=== PATIENT | female | born 1965 | race Caucasian/White ===

== ENCOUNTER 2019-04-26 01:02 | Inpatient (IN) ==
[2019-04-26] MEDS ORDERED: 0.9 % Sodium Chloride 1,000 ML IVC ONE ×2 (02:27→04:59)
--- NOTE | 2019-04-26 02:58 | Emergency Department Note ---
Disposition Clinical Impression: Fever Qualifiers: Fever type: unspecified Qualified Code(s): R50.9 - Fever, unspecified Neutropenia Qualifiers: Neutropenia type: secondary to cancer chemotherapy Qualified Code(s): D70.1 - Agranulocytosis secondary to cancer chemotherapy Disposition: Admitted As Inpatient Condition: Fair Referrals: Shelia Reilly LOG LOADER [Primary Care Provider] - Forms: ED Satisfaction Letter, Work/School Release Time of Disposition: 06:30 General Adult HPI - General Chief complaint: ED General Medical Stated complaint: DACOSTA, Fever, cancer pt. Time Seen by Provider: 04/26/19 02:24 Source: patient Limitations: no limitations Nursing Notes Reviewed: Yes Vital Signs Reviewed: Yes - History of Present Illness HPI Narrative: 53 year old female presents to the emergency department with concern for nausea, generalized myalgias, not feeling too well over the last few days. Patient reports that she has been coughing, feeling nauseated, has had some intermittent diarrhea as well. She reports that she has had some lower abdominal pain. Patient states she has a history of pancreatitis. Patient states her last chemotherapy was on Monday. Pain Scale: 8 - Related Data Home Medications Medication Instructions Recorded Confirmed Lansoprazole [Prevacid] 30 mg PO BID 02/07/17 04/26/19 Levothyroxine [Synthroid] [place] [address]/07/17 04/26/19 Metoprolol [Lopressor] 100 mg PO BID 02/07/17 04/26/19 Montelukast [Singulair] 10 mg PO DAILY 02/07/17 04/26/19 Diclofenac Sodium [Voltaren] 75 mg PO HS 07/13/18 04/26/19 Gabapentin [Neurontin] 100 mg PO HS 07/13/18 04/26/19 Tizanidine HCl 4 mg PO BID PRN 08/16/18 04/26/19 Dicyclomine Hcl [Bentyl] 20 mg PO QID PRN 03/04/19 04/26/19 Famotidine [Pepcid] 40 mg PO HS 03/04/19 04/26/19 Ubidecarenone [Coq10] 100 mg PO DAILY 03/04/19 04/26/19 Allergies Allergy/AdvReac Type Severity Reaction Status Date / Time aspirin [ASA] AdvReac Gastrointestinal Verified 04/26/19 06:07 Upset clopidogrel [From Plavix] AdvReac EXCESSIVE Verified 04/26/19 06:07 BRUISING Erythromycin Base AdvReac N/V Verified 04/26/19 06:07 [From E-Mycin] pravastatin AdvReac Muscle Pain Verified 04/26/19 06:07 simvastatin [From Zocor] AdvReac Muscle Pain Verified 04/26/19 06:07 All systems ED: reviewed and negative except as stated. Review of Systems: As Per HPI Constitutional: Reports: fever Cardiovascular: Denies: chest pain Gastrointestinal: Reports: abdominal pain, nausea, diarrhea Genitourinary: Denies: urgency, dysuria, frequency Integumentary: Denies: rash Neurological: Reports: headache Past Medical History - Past Medical History Attestation: Yes The following information was validated with the patient. Medical history: Reports: asthma, cancer, GERD, hyperlipidemia, hypertension, migraine, thyroid disease, syncope, TIA Surgical history: Reports: , hysterectomy Psychiatric history: Reports: anxiety, bipolar, depression, panic disorder, other - Social History Smoking Status: Never smoker Smokeless Tobacco Status: No Alcohol use: Reports: none Drug use: Reports: none Physical Exam - General Limitations: no limitations General appearance: alert - Head Head exam: normocephalic - Eye Eye exam: Present: EOMI - ENT ENT exam: mucous membranes moist - Neck Neck exam: Present: trachea midline - Chest Chest inspection: Present: symmetric chest wall rise - Respiratory Respiratory exam: Present: normal lung sounds bilaterally. Absent: respiratory distress, accessory muscle use - Cardiovascular Cardiovascular exam: Present: normal rhythm, tachycardia, normal heart sounds - Abdominal Exam Abdominal exam: Present: soft, tenderness. Absent: distention, guarding, r ebound, rigidity - Extremities Exam Extremities exam: Present: normal capillary refill - Back Exam Back exam: Present: full ROM - Neurological Exam Neurological exam: Present: alert, oriented X3 - Psychiatric Psychiatric exam: Present: normal affect, normal mood - Skin Skin exam: Present: warm, dry, intact, normal color. Absent: rash Course Vital Signs Temperature 100.2 F H 04/26/19 01:06 Pulse Rate 101 04/26/19 01:06 Respiratory Rate 20 04/26/19 01:06 Blood Pressure 166/86 04/26/19 01:06 O2 Sat by Pulse Oximetry 99 04/26/19 01:06 Temperature 98.7 F 04/26/19 06:35 Pulse Rate 87 04/26/19 06:35 Respiratory Rate 11 04/26/19 06:35 Blood Pressure 141/85 04/26/19 06:35 O2 Sat by Pulse Oximetry 94 04/26/19 06:35 Oxygen Delivery Oxygen Delivery Room Air Medical Decision Making - MDM Narrative Medical decision making narrative: 53-year-old female presents to the emergency department with concern for fever. She also started chemotherapy. Patient is neutropenic here in the emergency department for the first time. This is concerning. We have obtained blood cultures as well as a culture from her port. We are administering Zosyn preemptively. Patient is given 2 liter of fluids here in the emergency department. Patient appeared to be feeling better after 2 L of fluid administration. Tachycardia did resolve. Flu and strep swab were negative. CT scans did not reveal any evidence of acute abnormality. Incidental findings as well as regression of nodes were discussed with patient at bedside. Due to concern that patient is newly neutropenic, we will admit her for further management. Dr. Menjivar accepted patient for admission. Dr. Dawkins is patient's Oncologist. Patient does not know what chemotherapy drugs she is on. Abdomen/Pelvis CT 04/26/19 03:33 IMPRESSION: No evidence of pancreatitis or other acute process within the abdomen or pelvis. Few incidental/chronic findings as detailed above. No significant interval change. D/ / Perez Man MD / Perez Man MD Interpreting Provider: Perez Man MD Chest CT 04/26/19 03:33 IMPRESSION: No evidence of acute process within the chest. Interval decreased adenopathy as described. D/ / Perez Man MD / Perez Man MD Interpreting Provider: Perez Man MD Thoracic Spine CT 04/26/19 03:55 IMPRESSION: No acute abnormality of the thoracic spine. D/ / Perez Man MD / Perez Man MD Interpreting Provider: Perez Man MD - Lab Data Result diagrams: 04/26/19 03:11 04/26/19 03:11 Lab Results 04/26/19 04/26/19 04/26/19 Range/Units 03:01 03:11 03:11 WBC 0.9 L* D (4.3-11.1) K/mcL RBC 3.37 L (3.82-4.97) M/mcL Hgb 10.0 L D (11.5-15.4) g/dL Hct 30.0 L (35.3-44.9) % MCV 89.0 (83.0-100.0) fL MCH 29.7 (28.0-33.3) pg MCHC 33.3 (31.6-35.5) g/dL RDW 12.7 (11.5-14.5) % Plt Count 64 L (140-400) K/mcL MPV 11.1 (9.4-12.4) fL Immature Gran % 1.2 (0-4) % Seg Neutrophils % 11.6 % Lymphocytes % 70.9 % Monocytes % 11.6 % Eosinophils % 3.5 % Basophils % 1.2 % Neutrophils # 0.1 L (1.6-8.9) K/mcL Lymphocytes # 0.6 (0.6-4.6) K/mcL Monocytes # 0.1 (0.0-1.3) K/mcL Eosinophils # 0.0 (0.0-0.6) K/mcL Basophils # 0.0 (0.0-0.2) K/mcL Platelet Estimate Decreased L (Normal) PT (9.4-12.1) Seconds INR APTT (26.0-36.0) Seconds Sodium (136-145) mEq/L Potassium (3.5-5.1) mEq/L Chloride (98-107) mEq/L Carbon Dioxide (23-29) mEq/L BUN (6-20) mg/dL Creatinine (0.60-1.20) mg/dL Est GFR ( Amer) (> 60) Est GFR (Non-Af Amer) (> 60) BUN/Creatinine Ratio (6-26) Glucose (70-105) mg/dL Calculated Osmolality (280-300) Lactic Acid 1.4 (0.5-2.2) mmol/L Calcium (8.6-10.3) mg/dL Phosphorus (2.7-4.5) mg/dL Magnesium (1.6-2.6) mg/dL Total Bilirubin (0.3-1.0) mg/dL Direct Bilirubin (0.0-0.2) mg/dL Indirect Bilirubin (0.0-1.2) mg/dL AST (13-39) Units/L ALT (7-52) Units/L Alkaline Phosphatase (34-104) Units/L Troponin I (< 0.04) ng/mL Serum Total Protein (6.4-8.9) g/dL Albumin (3.5-5.7) g/dL Globulin (2.4-3.5) g/dL Albumin/Globulin Ratio (1.1-2.2) Lipase (11-82) Units/L Urine Color Yellow (Yellow) Urine Clarity Clear (Clear) Urine pH 7.5 (5.0-8.0) pH Units Ur Specific [place] < 1.005 L (1.010-1.025) Urine Protein Negative (Neg-Trace) mg/dL Urine Glucose (UA) Normal (Normal) mg/dL Urine Ketones Negative (Negative) mg/dL Urine Blood Negative (Negative) Urine Nitrite Negative (Negative) Urine Bilirubin Negative (Negative) Urine Urobilinogen Normal (Normal) mg/dL Ur Leukocyte Esterase Negative (Negative) Ur Culture Indicated? NO (NO) 04/26/19 04/26/19 Range/Units 03:11 03:11 WBC (4.3-11.1) K/mcL RBC (3.82-4.97) M/mcL Hgb (11.5-15.4) g/dL Hct (35.3-44.9) % MCV (83.0-100.0) fL MCH (28.0-33.3) pg MCHC (31.6-35.5) g/dL RDW (11.5-14.5) % Plt Count (140-400) K/mcL MPV (9.4-12.4) fL Immature Gran % (0-4) % Seg Neutrophils % % Lymphocytes % % Monocytes % % Eosinophils % % Basophils % % Neutrophils # (1.6-8.9) K/mcL Lymphocytes # (0.6-4.6) K/mcL Monocytes # (0.0-1.3) K/mcL Eosinophils # (0.0-0.6) K/mcL Basophils # (0.0-0.2) K/mcL Platelet Estimate (Normal) PT 11.0 (9.4-12.1) Seconds INR 1.0 APTT 28.1 (26.0-36.0) Seconds Sodium 139 (136-145) mEq/L Potassium 3.9 (3.5-5.1) mEq/L Chloride 102 (98-107) mEq/L Carbon Dioxide 26 (23-29) mEq/L BUN 9 (6-20) mg/dL Creatinine 0.73 (0.60-1.20) mg/dL Est GFR ( Amer) > 60 (> 60) Est GFR (Non-Af Amer) > 60 (> 60) BUN/Creatinine Ratio 12 (6-26) Glucose 103 (70-105) mg/dL Calculated Osmolality 287 (280-300) Lactic Acid (0.5-2.2) mmol/L Calcium 9.0 (8.6-10.3) mg/dL Phosphorus 3.2 (2.7-4.5) mg/dL Magnesium 1.8 (1.6-2.6) mg/dL Total Bilirubin 0.7 (0.3-1.0) mg/dL Direct Bilirubin 0.1 (0.0-0.2) mg/dL Indirect Bilirubin 0.6 (0.0-1.2) mg/dL AST 49 H (13-39) Units/L ALT 96 H (7-52) Units/L Alkaline Phosphatase 63 (34-104) Units/L Troponin I < 0.03 (< 0.04) ng/mL Serum Total Protein 5.9 L (6.4-8.9) g/dL Albumin 3.8 (3.5-5.7) g/dL Globulin 2.1 L (2.4-3.5) g/dL Albumin/Globulin Ratio 1.8 (1.1-2.2) Lipase 19 (11-82) Units/L Urine Color (Yellow) Urine Clarity (Clear) Urine pH (5.0-8.0) pH Units Ur Specific [place] (1.010-1.025) Urine Protein (Neg-Trace) mg/dL Urine Glucose (UA) (Normal) mg/dL Urine Ketones (Negative) mg/dL Urine Blood (Negative) Urine Nitrite (Negative) Urine Bilirubin (Negative) Urine Urobilinogen (Normal) mg/dL Ur Leukocyte Esterase (Negative) Ur Culture Indicated? (NO) - EKG Data EKG #1 EKG attestation: Yes I reviewed and interpreted this EKG. EKG results narrative: 03:34 Heart rate 97 bpm, IL interval 161 ms, QRS duration 90 ms, QT 347 ms, normal axis. Sinus rhythm with no ischemic ST changes.
[2019-04-26 03:27] LABS: Bilirubin,Urine Negative (Negative); Blood,Urine Negative (Negative); Clarity,Urine Clear (Clear); Color,Urine Yellow (Yellow); Glucose,Urine (UA) Normal (Normal); Ketones,Urine Negative (Negative); Leukocyte Esterase,Urine Negative (Negative); Nitrite,Urine Negative (Negative); PH,Urine 7.5 pH Units (5.0-8.0); Protein,Urine Negative (Neg-Trace); Specific Gravity,Urine < 1.005 (1.010-1.025); Urobilinogen,Urine Normal (Normal)
[2019-04-26 03:29] LABS: Basophils % 1.2 %; Eosinophils % 3.5 %; Immature Granulocytes % 1.2 % (0-4); Lymphocytes # 0.6 K/mcL (0.6-4.6); Lymphocytes % 70.9 %; Mean Corpuscular HGB Conc 33.3 g/dL (31.6-35.5); Mean Corpuscular Hemoglobin 29.7 pg (28.0-33.3); Mean Platelet Volume 11.1 fL (9.4-12.4); Monocytes # 0.1 K/mcL (0.0-1.3); Monocytes % 11.6 %; Neutrophils # 0.1 K/mcL (1.6-8.9); Red Blood Count 3.37 M/mcL (3.82-4.97); Red Cell Distribution Width 12.7 % (11.5-14.5); Segmented Neutrophils % 11.6 %
[2019-04-26] MEDS ORDERED: Isovue-370 500 ML BOTTLE IVP ONE (03:33)
[2019-04-26 03:41] LABS: Activated Partial Thrombo Time 28.1 Seconds (26.0-36.0)
[2019-04-26 03:47] LABS: Platelet Count 64 K/mcL (140-400)
[2019-04-26 03:50] LABS: Alanine Aminotransferase 96 Units/L (7-52); Albumin 3.8 g/dL (3.5-5.7); Albumin/Globulin Ratio 1.8 (1.1-2.2); Alkaline Phosphatase 63 Units/L (34-104); Aspartate Amino Transferase 49 Units/L (13-39); BUN/Creatinine Ratio 12 (6-26); Bilirubin,Direct 0.1 mg/dL (0.0-0.2); Bilirubin,Indirect 0.6 mg/dL (0.0-1.2); Bilirubin,Total 0.7 mg/dL (0.3-1.0); Blood Urea Nitrogen 9 mg/dL (6-20); Carbon Dioxide 26 mEq/L (23-29); Chloride 102 mEq/L (98-107); Globulin 2.1 g/dL (2.4-3.5); Glucose 103 mg/dL (70-105); Magnesium 1.8 mg/dL (1.6-2.6); Osmolality,Calculated 287 (280-300); Phosphorous 3.2 mg/dL (2.7-4.5); Potassium 3.9 mEq/L (3.5-5.1); Sodium 139 mEq/L (136-145); Total Protein 5.9 g/dL (6.4-8.9); Troponin I < 0.03 ng/mL (< 0.04); eGFR For African Americans > 60 (> 60); eGFR For Non-African Americans > 60 (> 60)
[2019-04-26 04:00] LABS: White Blood Count 0.9 K/mcL (4.3-11.1)
[2019-04-26 04:03] LABS: Platelet Estimate Decreased (Normal)
[2019-04-26 04:09] LABS: Lipase 19 Units/L (11-82)
[2019-04-26] MEDS ORDERED: Piperacillin/Tazobactam 3.375 GM in Water for inj. (sterile) 20 ML IVP ONE (04:23)
--- NOTE | 2019-04-26 04:43 | Emergency Department Note ---
Disposition Clinical Impression: Fever Qualifiers: Fever type: unspecified Qualified Code(s): R50.9 - Fever, unspecified Neutropenia Qualifiers: Neutropenia type: secondary to cancer chemotherapy Qualified Code(s): D70.1 - Agranulocytosis secondary to cancer chemotherapy Disposition: Admitted As Inpatient Condition: Fair Referrals: Shelia Reilly TELEPHONER [Primary Care Provider] - Forms: ED Satisfaction Letter, Work/School Release Time of Disposition: 06:30 General Adult HPI - General Chief complaint: ED General Medical Stated complaint: DACOSTA, Fever, cancer pt. Time Seen by Provider: 04/26/19 02:24 Source: patient Limitations: no limitations Nursing Notes Reviewed: Yes Vital Signs Reviewed: Yes - History of Present Illness Pain Scale: 7 - Related Data Home Medications Medication Instructions Recorded Confirmed Lansoprazole [Prevacid] 30 mg PO BID 02/07/17 04/26/19 Levothyroxine [Synthroid] [place] [address]/07/17 04/26/19 Metoprolol [Lopressor] 100 mg PO BID 02/07/17 04/26/19 Montelukast [Singulair] 10 mg PO DAILY 02/07/17 04/26/19 Diclofenac Sodium [Voltaren] 75 mg PO HS 07/13/18 04/26/19 Gabapentin [Neurontin] 100 mg PO HS 07/13/18 04/26/19 Tizanidine HCl 4 mg PO BID PRN 08/16/18 04/26/19 Dicyclomine Hcl [Bentyl] 20 mg PO QID PRN 03/04/19 04/26/19 Famotidine [Pepcid] 40 mg PO HS 03/04/19 04/26/19 Ubidecarenone [Coq10] 100 mg PO DAILY 03/04/19 04/26/19 Allergies Allergy/AdvReac Type Severity Reaction Status Date / Time aspirin [ASA] AdvReac Gastrointestinal Verified 04/26/19 06:07 Upset clopidogrel [From Plavix] AdvReac EXCESSIVE Verified 04/26/19 06:07 BRUISING Erythromycin Base AdvReac N/V Verified 04/26/19 06:07 [From E-Mycin] pravastatin AdvReac Muscle Pain Verified 04/26/19 06:07 simvastatin [From Zocor] AdvReac Muscle Pain Verified 04/26/19 06:07 Past Medical History - Past Medical History Medical history: Reports: asthma, cancer, GERD, hyperlipidemia, hypertension, migraine, thyroid disease, syncope, TIA Surgical history: Reports: , hysterectomy Psychiatric history: Reports: anxiety, bipolar, depression, panic disorder, other - Social History Smoking Status: Never smoker Smokeless Tobacco Status: No Alcohol use: Reports: none Drug use: Reports: none Physical Exam - General Limitations: no limitations General appearance: alert Course Vital Signs Temperature 100.2 F H 04/26/19 01:06 Pulse Rate 101 04/26/19 01:06 Respiratory Rate 20 04/26/19 01:06 Blood Pressure 166/86 04/26/19 01:06 O2 Sat by Pulse Oximetry 99 04/26/19 01:06 Temperature 98.7 F 04/26/19 06:35 Pulse Rate 87 04/26/19 06:35 Respiratory Rate 11 04/26/19 06:35 Blood Pressure 141/85 04/26/19 06:35 O2 Sat by Pulse Oximetry 94 04/26/19 06:35 Oxygen Delivery Oxygen Delivery Room Air Medical Decision Making - Medical Records Medical records reviewed: Yes I reviewed the patient's medical records. - Lab Data Lab results reviewed: Yes I reviewed the patient's lab results. Result diagrams: 04/26/19 03:11 04/26/19 03:11 Lab Results 04/26/19 04/26/19 04/26/19 Range/Units 03:01 03:11 03:11 WBC 0.9 L* D (4.3-11.1) K/mcL RBC 3.37 L (3.82-4.97) M/mcL Hgb 10.0 L D (11.5-15.4) g/dL Hct 30.0 L (35.3-44.9) % MCV 89.0 (83.0-100.0) fL MCH 29.7 (28.0-33.3) pg MCHC 33.3 (31.6-35.5) g/dL RDW 12.7 (11.5-14.5) % Plt Count 64 L (140-400) K/mcL MPV 11.1 (9.4-12.4) fL Immature Gran % 1.2 (0-4) % Seg Neutrophils % 11.6 % Lymphocytes % 70.9 % Monocytes % 11.6 % Eosinophils % 3.5 % Basophils % 1.2 % Neutrophils # 0.1 L (1.6-8.9) K/mcL Lymphocytes # 0.6 (0.6-4.6) K/mcL Monocytes # 0.1 (0.0-1.3) K/mcL Eosinophils # 0.0 (0.0-0.6) K/mcL Basophils # 0.0 (0.0-0.2) K/mcL Platelet Estimate Decreased L (Normal) PT (9.4-12.1) Seconds INR APTT (26.0-36.0) Seconds Sodium (136-145) mEq/L Potassium (3.5-5.1) mEq/L Chloride (98-107) mEq/L Carbon Dioxide (23-29) mEq/L BUN (6-20) mg/dL Creatinine (0.60-1.20) mg/dL Est GFR ( Amer) (> 60) Est GFR (Non-Af Amer) (> 60) BUN/Creatinine Ratio (6-26) Glucose (70-105) mg/dL Calculated Osmolality (280-300) Lactic Acid 1.4 (0.5-2.2) mmol/L Calcium (8.6-10.3) mg/dL Phosphorus (2.7-4.5) mg/dL Magnesium (1.6-2.6) mg/dL Total Bilirubin (0.3-1.0) mg/dL Direct Bilirubin (0.0-0.2) mg/dL Indirect Bilirubin (0.0-1.2) mg/dL AST (13-39) Units/L ALT (7-52) Units/L Alkaline Phosphatase (34-104) Units/L Troponin I (< 0.04) ng/mL Serum Total Protein (6.4-8.9) g/dL Albumin (3.5-5.7) g/dL Globulin (2.4-3.5) g/dL Albumin/Globulin Ratio (1.1-2.2) Lipase (11-82) Units/L Urine Color Yellow (Yellow) Urine Clarity Clear (Clear) Urine pH 7.5 (5.0-8.0) pH Units Ur Specific [place] < 1.005 L (1.010-1.025) Urine Protein Negative (Neg-Trace) mg/dL Urine Glucose (UA) Normal (Normal) mg/dL Urine Ketones Negative (Negative) mg/dL Urine Blood Negative (Negative) Urine Nitrite Negative (Negative) Urine Bilirubin Negative (Negative) Urine Urobilinogen Normal (Normal) mg/dL Ur Leukocyte Esterase Negative (Negative) Ur Culture Indicated? NO (NO) 04/26/19 04/26/19 Range/Units 03:11 03:11 WBC (4.3-11.1) K/mcL RBC (3.82-4.97) M/mcL Hgb (11.5-15.4) g/dL Hct (35.3-44.9) % MCV (83.0-100.0) fL MCH (28.0-33.3) pg MCHC (31.6-35.5) g/dL RDW (11.5-14.5) % Plt Count (140-400) K/mcL MPV (9.4-12.4) fL Immature Gran % (0-4) % Seg Neutrophils % % Lymphocytes % % Monocytes % % Eosinophils % % Basophils % % Neutrophils # (1.6-8.9) K/mcL Lymphocytes # (0.6-4.6) K/mcL Monocytes # (0.0-1.3) K/mcL Eosinophils # (0.0-0.6) K/mcL Basophils # (0.0-0.2) K/mcL Platelet Estimate (Normal) PT 11.0 (9.4-12.1) Seconds INR 1.0 APTT 28.1 (26.0-36.0) Seconds Sodium 139 (136-145) mEq/L Potassium 3.9 (3.5-5.1) mEq/L Chloride 102 (98-107) mEq/L Carbon Dioxide 26 (23-29) mEq/L BUN 9 (6-20) mg/dL Creatinine 0.73 (0.60-1.20) mg/dL Est GFR ( Amer) > 60 (> 60) Est GFR (Non-Af Amer) > 60 (> 60) BUN/Creatinine Ratio 12 (6-26) Glucose 103 (70-105) mg/dL Calculated Osmolality 287 (280-300) Lactic Acid (0.5-2.2) mmol/L Calcium 9.0 (8.6-10.3) mg/dL Phosphorus 3.2 (2.7-4.5) mg/dL Magnesium 1.8 (1.6-2.6) mg/dL Total Bilirubin 0.7 (0.3-1.0) mg/dL Direct Bilirubin 0.1 (0.0-0.2) mg/dL Indirect Bilirubin 0.6 (0.0-1.2) mg/dL AST 49 H (13-39) Units/L ALT 96 H (7-52) Units/L Alkaline Phosphatase 63 (34-104) Units/L Troponin I < 0.03 (< 0.04) ng/mL Serum Total Protein 5.9 L (6.4-8.9) g/dL Albumin 3.8 (3.5-5.7) g/dL Globulin 2.1 L (2.4-3.5) g/dL Albumin/Globulin Ratio 1.8 (1.1-2.2) Lipase 19 (11-82) Units/L Urine Color (Yellow) Urine Clarity (Clear) Urine pH (5.0-8.0) pH Units Ur Specific [place] (1.010-1.025) Urine Protein (Neg-Trace) mg/dL Urine Glucose (UA) (Normal) mg/dL Urine Ketones (Negative) mg/dL Urine Blood (Negative) Urine Nitrite (Negative) Urine Bilirubin (Negative) Urine Urobilinogen (Normal) mg/dL Ur Leukocyte Esterase (Negative) Ur Culture Indicated? (NO) - Radiology Data Radiology results reviewed: Yes I reviewed the patient's radiology results. Abdomen/Pelvis CT 04/26/19 03:33 IMPRESSION: No evidence of pancreatitis or other acute process within the abdomen or pelvis. Few incidental/chronic findings as detailed above. No significant interval change. D/ / Perez Man MD / Perez Man MD Interpreting Provider: Perez Man MD Chest CT 04/26/19 03:33 IMPRESSION: No evidence of acute process within the chest. Interval decreased adenopathy as described. D/ / Perez Man MD / Perez Man MD Interpreting Provider: Perez Man MD Thoracic Spine CT 04/26/19 03:55 IMPRESSION: No acute abnormality of the thoracic spine. D/ / Perez Man MD / Perez Man MD Interpreting Provider: Perez Man MD - EKG Data EKG #1 EKG attestation: Yes I reviewed and interpreted this EKG. EKG results narrative: EKG shows a normal sinus rhythm with ventricular rate of 97. No significant ST segment elevation or depression. No arrhythmia or ectopy. Critical Care Time Critical Care Time: Yes Total Critical Care Time: 45 Attestation: Critical care performed: Time is exclusive of separately billable procedures. Time includes: direct patient care, patient reassessment, coordination of patient care, interpretation of data (laboratory data, radiology data, and respiratory data), review of patient's medical records, medical consultation and documentation of patient care. Procedures included in critical care time: Procedures excluded from critical care time: Attestation Statement - Attestation Attestation: ISpeedy MD, personally evaluated this patient and discussed their management with the resident physician. I reviewed the resident's note and agree with the documented findings, medical decision making, and plan of care. I reviewed the residents documentation and agree with the residents assessment and plan of care. I have personally had face to face time with the patient. I personally supervised and was present for the singh/critical portions of the following procedures completed by the resident: EKG interpretation. 53-year-old female presents to the emergency department with a complaint of sore throat, headache, generalized body aches, and fever for 1 day prior to arrival. Patient was recently diagnosed with Hodgkin's lymphoma and recently started chemotherapy. Her last chemotherapy was last week. No increased cough or shortness of breath. No chest pain. Some abdominal pain and flank pain. No GI bleed symptoms. No UTI symptoms. Some mid back pain. On examination patient is a well-developed well-nourished female in no acute distress. She is alert and oriented 3. There is no cyanosis or diaphoresis. Breath sounds are clear and equal bilaterally. Heart regular rate and rhythm. Abdomen is soft with mild to moderate mid and upper abdominal tenderness, worse in the left upper quadrant. Mild left CVA tenderness. Tenderness palpation over the midthoracic spine. No guarding or rebound tenderness. EKG shows a normal sinus rhythm with ventricular rate of 97. No significant ST segment elevation or depression. No arrhythmia or ectopy. Labs reviewed. WBC 0.9 with absolute neutrophil count 0.1. Platelets 64. No acute abnormality on CT of the chest, abdomen, and thoracic spine. Blood cultures obtained and IV antibiotics initiated. The hospitalist, Dr. Menjivar, was consulted and accepted admission of the patient.
[2019-04-26] MEDS ORDERED: Naloxone 0.4 MG/ML INJ IVP PRN (08:27)
--- NOTE | 2019-04-26 08:46 | Internal Med History&Physical ---
Date of Encounter: 04/26/19 Time of Encounter: 08:46 Internal Medicine - H&P: HPI Chief complaint: Fever Admitted From: Emergency Dept History of present illness: Milly Gonzalez is a 53 F w hx Follicular Lymphoma (dx '08, recurrence ') s/p RIJ port 04/01/2019, TIA, L carotid stenosis, PFO w R to L shunt, hypothyroidism s/p cristin's thyroiditis, asthma, migraines, who p/w fever. Patient recently started chemotherapy, first infusion on 04/18. States she had Neulasta to prevent neutropenia but thinks only the first dose was given, not the second one. Says that 2 days ago, she had crampy abd pain associated with an episode of diarrhea, and thereafter felt warm with low grade fevers which improved following a drenching sweat around when she went to bed. However, on , she again felt warm and sweaty, and checked her temp which was 101 and thus she came to ED. No further diarrhea, no N/V, no mouth sores, no cough, no rashes, no dysuria. In the ED, vitals: T 100.2, HR 101, RR 20, BP 160s/80s, satting high 90s% on RA. Labs show ANC 0.1, Hb 10, Plt 60, Cr 0.7, ALT 100. Imaging including CT chest/abd/pelvis without abnormalities, as was a CT T-spine which was obtained for back pain. Rapid strep and flu swabs negative. Blood cultures obtained from peripheral and port. Patient given NS 2L bolus and dose of Zosyn prior to admission for further workup. Past medical, surgical, social, and family histories reviewed and updated as below. Past Med Surg Social Fam HX - Past Medical History Medical history: asthma, cancer, GERD, hyperlipidemia, hypertension, migraine, thyroid disease, syncope, TIA Additional medical history: TIA x 2. stenosis of lt carotid artery. PFO with rt to lt shunt seen on echo. RLS. FAVIO Psychiatric history: anxiety, bipolar, depression, panic disorder, other - Past Surgical History Surgical History: , hysterectomy Additional surgical history: breast, cataract. ablation, lumpectomy left breast - Social History Smoking Status: Never smoker Smokeless Tobacco Status: No Alcohol use: none Drug use: none - Family History Father Living Status: Still Living Hx Family Cardiac Disorders: Yes (CHF) Mother Living Status: Hx Family Cardiac Disorders: Yes ([place]) Hx Family Neurologic Disorders: Yes (stroke) Internal Medicine - H&P: Meds Lansoprazole [Prevacid] 30 mg PO BID 02/07/17 [History] Levothyroxine [Synthroid] 112 mcg PO 0630 02/07/17 [History] Metoprolol [Lopressor] 100 mg PO BID 02/07/17 [History] Montelukast [Singulair] 10 mg PO DAILY 02/07/17 [History] Diclofenac Sodium [Voltaren] 75 mg PO HS 07/13/18 [History] Gabapentin [Neurontin] 100 mg PO HS 07/13/18 [History] Tizanidine HCl 4 mg PO BID PRN 08/16/18 [History] Dicyclomine Hcl [Bentyl] 20 mg PO QID PRN 03/04/19 [History] Famotidine [Pepcid] 40 mg PO HS 03/04/19 [History] Ubidecarenone [Coq10] 100 mg PO DAILY 03/04/19 [History] Allergy/AdvReac Type Severity Reaction Status Date / Time aspirin [ASA] AdvReac Gastrointestinal Verified 04/26/19 06:07 Upset clopidogrel [From Plavix] AdvReac EXCESSIVE Verified 04/26/19 06:07 BRUISING Erythromycin Base AdvReac N/V Verified 04/26/19 06:07 [From E-Mycin] pravastatin AdvReac Muscle Pain Verified 04/26/19 06:07 simvastatin [From Zocor] AdvReac Muscle Pain Verified 04/26/19 06:07 All Systems PM: A 10-system review of systems was performed and is negative for pertinent findings except as documented above in the HPI. - Constitutional Vitals: Temp Pulse Resp BP Pulse Ox 98.7 F 85 16 139/89 96 04/26/19 08:09 04/26/19 08:03 04/26/19 08:03 04/26/19 08:03 04/26/19 08:03 Exam: General: NAD, good eye contact, well appearing but does appear slightly older than stated age Head: Atraumatic, normocephalic. Face symmetric Eyes: EOMI, sclerae anicteric ENT: Mucous membranes moist. Normal oral mucosa and dentition, no ulcers or irritation. Trachea midline. Thoracic: No visible chest wall deformities. Normal breath sounds b/l, no wheezing or crackles Cardio: Normal S1 and S2, regular rate and rhythm Abdomen: Soft, nondistended, bowel sounds present, does have mild umbilical /epigastric tenderness Extremities: Warm, well perfused. DP pulses 2+ b/l. No clubbing, cyanosis. No edema Skin: Intact. No rashes, bruises, or ulcers Neuro: Awake, fully oriented. Good memory, concentration, attention. Speech fluent. CN II-XII grossly intact. Strength 5/5 in b/l UE and LE Internal Med - H&P Results - Labs CBC & Chem 7: 04/26/19 03:11 04/26/19 03:11 Labs: Short CBC 04/26/19 Range/Units 03:11 WBC 0.9 L* D (4.3-11.1) K/mcL Hgb 10.0 L D (11.5-15.4) g/dL Hct 30.0 L (35.3-44.9) % Plt Count 64 L (140-400) K/mcL Neutrophils # 0.1 L (1.6-8.9) K/mcL BMP 04/26/19 03:11 Sodium 139 Potassium 3.9 Chloride 102 Carbon Dioxide 26 BUN 9 Creatinine 0.73 Glucose 103 Calcium 9.0 Cardiac Enzymes 04/26/19 Range/Units 03:11 Troponin I < 0.03 (< 0.04) ng/mL Liver Function 04/26/19 Range/Units 03:11 Total Bilirubin 0.7 (0.3-1.0) mg/dL Direct Bilirubin 0.1 (0.0-0.2) mg/dL AST 49 H (13-39) Units/L ALT 96 H (7-52) Units/L Alkaline Phosphatase 63 (34-104) Units/L Albumin 3.8 (3.5-5.7) g/dL Urine 04/26/19 Range/Units 03:11 Urine Color Yellow (Yellow) Urine Clarity Clear (Clear) Urine pH 7.5 (5.0-8.0) pH Units Ur Specific Tor[place] < 1.005 L (1.010-1.025) Urine Protein Negative (Neg-Trace) mg/dL Urine Glucose (UA) Normal (Normal) mg/dL - Impressions ITS Impressions Abdomen/Pelvis CT 04/26/19 03:33 IMPRESSION: No evidence of pancreatitis or other acute process within the abdomen or pelvis. Few incidental/chronic findings as detailed above. No significant interval change. D/ / Perez Man MD / Perez Man MD Interpreting Provider: Perez Man MD Chest CT 04/26/19 03:33 IMPRESSION: No evidence of acute process within the chest. Interval decreased adenopathy as described. D/ / Perez Man MD / Perez Man MD Interpreting Provider: Perez Man MD Thoracic Spine CT 04/26/19 03:55 IMPRESSION: No acute abnormality of the thoracic spine. D/ / Perez Man MD / Perez Man MD Interpreting Provider: Perez Man MD - Summary of Assessment and Plan Summary of Assessment and Plan: Milly Gonzalez is a 53 F w hx Follicular Lymphoma (dx '08, recurrence '19) s/p RIJ port 04/01/2019, TIA, L carotid stenosis, PFO w R to L shunt, hypothyroidism s/p cristin's thyroiditis, asthma, migraines, who p/w fever, ANC 0.1, in context of recent chemo, concerning for neutropenic fever. Neutropenic fever: unclear source, no focal s/sx other than single episode diarrhea -2d, rapid flu and strep negative, CXR and UA unremarkable - BCx x2 (peripheral and port) pending - RVP - stool molecular panel if has loose stools - empiric zosyn - no mucositis, rash, or port erythema to suggest need for vanc at this point - Heme consult - neutropenic precautions Sepsis: SIRS 4/4, management as above Mild normocytic anemia: likely 2/2 lymphoma and chemo, maintain Hb >7 Thrombocytopenia: SCDs, maintain Plt >20 Follicular lymphoma: f/w anirudh Sutton in place, last chemo 04/18, Onc consulted for assistance in management HTN: home lopressor 100 bid PAD (L carotid stenosis), TIA, HLD: ASA, statin PFO w R to L shunt: noted Hypothyroidism s/p thyroiditis: home synthroid 112 Migraines: GERD: home PPI daily Home meds: seroquel 50 qhs, gabapentin 100 qhs, voltaren gel prn, tizanidine 4 prn PPx: SCDs Activity: up ad alexandra FEN: cardiac, no MIVF Lines: anirudh MCCRARY Consults: Heme Code: Full Dispo: patient requires inpatient eval and management at this time. Anticipate 3+ days. Will be homegoing.
[2019-04-26 09:10] LABS: Lactate Dehydrogenase 187 Units/L (140-271); Uric Acid 2.4 mg/dL (2.3-7.6)
[2019-04-26] MEDS: Metoprolol 100 MG TABLET PO SCH ×2 (12:02→21:15)
[2019-04-26] MEDS: Piperacillin/Tazobactam 4.5 GM in 0.9 % Sodium Chloride Mini Bag 100 ML IVPB SCH ×2 (12:03→21:18)
[2019-04-26 13:10] LABS: Adenovirus Not Detected (Not Detect); Bordetella Pertussis Not Detected (Not Detect); Chlamydophila pneumoniae Not Detected (Not Detect); Coronavirus 229E Not Detected (Not Detect); Coronavirus HKU1 Not Detected (Not Detect); Coronavirus NL63 Not Detected (Not Detect); Coronavirus OC43 Not Detected (Not Detect); Human Metapneumovirus Not Detected (Not Detect); Human Rhinovirus/Enterovirus Not Detected (Not Detect); Influenza A Subtype 2009 H1 Not Detected (Not Detect); Influenza A Untypeable Not Detected (Not Detect); Influenza B Not Detected (Not Detect); Mycoplasma pneumoniae Not Detected (Not Detect); Parainfluenza Virus 1 Not Detected (Not Detect); Parainfluenza Virus 2 Not Detected (Not Detect); Parainfluenza Virus 3 Not Detected (Not Detect); Parainfluenza Virus 4 Not Detected (Not Detect); Respiratory Syncytial Virus Not Detected (Not Detect)
--- NOTE | 2019-04-26 14:48 | Oncology Inp Consult Note ---
<Jose Basilio - Last Filed: 04/26/19 15:45> Date of Encounter: 04/26/19 - Data of Consult Requesting Physician: Shiv Menjivar MD Primary Care Provider: Shelia Reilly CNP Medications and Allergies Metoprolol [Lopressor] 100 mg PO BID 02/07/17 [History] Montelukast [Singulair] 10 mg PO DAILY 02/07/17 [History] Diclofenac Sodium [Voltaren] 75 mg PO HS 07/13/18 [History] Gabapentin [Neurontin] 100 mg PO HS 07/13/18 [History] Tizanidine HCl 4 mg PO BID PRN 08/16/18 [History] Dicyclomine Hcl [Bentyl] 20 mg PO QID PRN 03/04/19 [History] Famotidine [Pepcid] 40 mg PO HS 03/04/19 [History] Ubidecarenone [Coq10] 100 mg PO DAILY 03/04/19 [History] Levothyroxine [Synthroid] 100 mcg PO DAILY 04/26/19 [History] Omeprazole [PriLOSEC] 40 mg PO DAILY 04/26/19 [History] Quetiapine Fumarate [Seroquel] 50 mg PO HS 04/26/19 [History] Allergy/AdvReac Type Severity Reaction Status Date / Time aspirin [ASA] AdvReac Gastrointestinal Verified 04/26/19 06:07 Upset clopidogrel [From Plavix] AdvReac EXCESSIVE Verified 04/26/19 06:07 BRUISING Erythromycin Base AdvReac N/V Verified 04/26/19 06:07 [From E-Mycin] pravastatin AdvReac Muscle Pain Verified 04/26/19 06:07 simvastatin [From Zocor] AdvReac Muscle Pain Verified 04/26/19 06:07 Consult Discharge Plan - Plan Referrals: Shelia Reilly CNP [Primary Care Provider] - Inpatient Charges Provider: Dr. Yordan Basilio Consult - Inpatient: [id number] - Attending Attestation I examined this patient and my medical decision-making was reviewed with the Advanced Practice Nurse. I agree with the documented findings, disposition and treatment plan as described except to the extent set forth below. -CT scans show that she is responding to treatment -Cultures pending. -Recommend Neupogen 5 mcg/kg SQ until ANC > 1000 -Currently on Zosyn, please add Acyclovir 400 mg PO BID and Fluconazole 400 mg PO daily <Avelino Luz Jr - Last Filed: 04/26/19 18:19> Date of Encounter: 04/26/19 Time of Encounter: 14:46 Assessment and Plan (1) Neutropenia Status: Acute Assessment and plan: This is a 53 year old female patient with Hodgkin lymphoma under the care of Dr Jose Basilio at [facility]. She has neutropenia secondary to Cycle 1 of RCHOP chemotherapy on 04/18/19. Currently, she feels much better after fluids and antibiotics. No more abdominal cramping Recommendations: 1. Neupogen 5mcg/kg daily until ANC > 1000 2. Add fluconazole 400 mg PO daily, acyclovir 400mg BID while inpatient, then for 10 days after discharge. At discharge add cipro 500 BID for 10 days. 3. Follow up as scheduled with Dr Basilio at the [facility] 4. OK to discharge when medically stable Dr Basilio assessed patient with me today Qualifiers: Neutropenia type: secondary to cancer chemotherapy Qualified Code(s): D70.1 - Agranulocytosis secondary to cancer chemotherapy; T45.1X5A - Adverse effect of antineoplastic and immunosuppressive drugs, initial encounter (2) Follicular lymphoma Status: Chronic Qualifiers: Follicular lymphoma type: unspecified follicular type Lymphoma site: neck Qualified Code(s): C82.91 - Follicular lymphoma, unspecified, lymph nodes of head, face, and neck - Data of Consult Patient: known to practice within the last 3 years Consult date: 04/26/19 Requesting Physician: Shiv Menjivar MD Primary Care Provider: Shelia Reilly CNP - Consult Narrative Reason for consult: Neutropenia History of present illness: This is a 53 year old female patient of Dr Jose Basilio at [facility] Oncology History: 1. Stage IIB, Nodular Lymphocyte Predominant Hodgkin's Lymphoma. a. Transformed from Stage I, grade 1 follicular lymphoma of the left axilla, initially diagnosed in 12/2017. 2. Stenosis of the left carotid artery (60-79%) 3. PFO, with a right to left shunt seen on ECHO. 4. Left breast excisional biopsy in 2006, results being benign 5. Trev's thyroiditis 6. TIA in September 2016, TIA in July 2018 7. Hypothyroidism 8. Asthma 9. Hyperlipidemia 10. Migraines/ Headaches Cycle 1, Day 1 RCHOP chemo on 04/18/19 At time of admission, she had crampy abdominal pain associated with an episode of diarrhea, and thereafter felt warm with low grade fevers which improved following a drenching sweat around when she went to bed. She had a temp of 101 and thus she came to ED and was admitted for neutropenia from chemo. Past Med Surg Social Fam HX - Past Medical History Medical history: asthma, cancer, GERD, hyperlipidemia, hypertension, migraine, thyroid disease, syncope, TIA Additional medical history: TIA x 2. stenosis of lt carotid artery. PFO with rt to lt shunt seen on echo. RLS. FAVIO Psychiatric history: anxiety, bipolar, depression, panic disorder, other - Past Surgical History Surgical History: , hysterectomy Additional surgical history: breast, cataract. ablation, lumpectomy left breast - Social History Smoking Status: Never smoker Smokeless Tobacco Status: No Alcohol use: none Drug use: none - Family History Father Living Status: Still Living Hx Family Cardiac Disorders: Yes (CHF) Mother Living Status: Hx Family Cardiac Disorders: Yes ([place]) Hx Family Neurologic Disorders: Yes (stroke) Constitutional: Present: fatigue, malaise Oncology - Exam - Constitutional General appearance: cooperative, no acute distress - Head Head exam: Present: normal inspection, normocephalic - Eye Eye exam: Present: PERRL - ENT ENT exam: Present: mucous membranes moist - Neck Neck exam: Present: full ROM - Respiratory Respiratory exam: Present: CTAB - Cardiovascular Cardiovascular exam: Present: RRR - GI/Abdominal GI/Abdominal exam: Present: normal bowel sounds, soft - Extremities Exam Extremities exam: Present: full ROM, normal inspection - Neurological Exam Neurological exam: Present: alert, oriented X3, no focal deficits - Psychiatric Psychiatric exam: Present: normal affect, normal mood - Skin Skin exam: Present: dry, intact, warm Oncology Inpatient Results Labs: Laboratory Last Values WBC 0.9 K/mcL (4.3-11.1) L* D 04/26/19 03:11 RBC 3.37 M/mcL (3.82-4.97) L 04/26/19 03:11 Hgb 10.0 g/dL (11.5-15.4) L D 04/26/19 03:11 Hct 30.0 % (35.3-44.9) L 04/26/19 03:11 MCV 89.0 fL (83.0-100.0) 04/26/19 03:11 MCH 29.7 pg (28.0-33.3) 04/26/19 03:11 MCHC 33.3 g/dL (31.6-35.5) 04/26/19 03:11 RDW 12.7 % (11.5-14.5) 04/26/19 03:11 Plt Count 64 K/mcL (140-400) L 04/26/19 03:11 MPV 11.1 fL (9.4-12.4) 04/26/19 03:11 Immature Gran % 1.2 % (0-4) 04/26/19 03:11 Seg Neutrophils % 11.6 % 04/26/19 03:11 Lymphocytes % 70.9 % 04/26/19 03:11 Monocytes % 11.6 % 04/26/19 03:11 Eosinophils % 3.5 % 04/26/19 03:11 Basophils % 1.2 % 04/26/19 03:11 Neutrophils # 0.1 K/mcL (1.6-8.9) L 04/26/19 03:11 Lymphocytes # 0.6 K/mcL (0.6-4.6) 04/26/19 03:11 Monocytes # 0.1 K/mcL (0.0-1.3) 04/26/19 03:11 Eosinophils # 0.0 K/mcL (0.0-0.6) 04/26/19 03:11 Basophils # 0.0 K/mcL (0.0-0.2) 04/26/19 03:11 Platelet Estimate Decreased (Normal) L 04/26/19 03:11 PT 11.0 Seconds (9.4-12.1) 04/26/19 03:11 INR 1.0 04/26/19 03:11 APTT 28.1 Seconds (26.0-36.0) 04/26/19 03:11 Sodium 139 mEq/L (136-145) 04/26/19 03:11 Potassium 3.9 mEq/L (3.5-5.1) 04/26/19 03:11 Chloride 102 mEq/L (98-107) 04/26/19 03:11 Carbon Dioxide 26 mEq/L (23-29) 04/26/19 03:11 BUN 9 mg/dL (6-20) 04/26/19 03:11 Creatinine 0.73 mg/dL (0.60-1.20) 04/26/19 03:11 Est GFR ( Amer) > 60 (> 60) 04/26/19 03:11 Est GFR (Non-Af Amer) > 60 (> 60) 04/26/19 03:11 BUN/Creatinine Ratio 12 (6-26) 04/26/19 03:11 Glucose 103 mg/dL (70-105) 04/26/19 03:11 Calculated Osmolality 287 (280-300) 04/26/19 03:11 Lactic Acid 1.4 mmol/L (0.5-2.2) 04/26/19 03:01 Uric Acid 2.4 mg/dL (2.3-7.6) 04/26/19 03:11 Calcium 9.0 mg/dL (8.6-10.3) 04/26/19 03:11 Phosphorus 3.2 mg/dL (2.7-4.5) 04/26/19 03:11 Magnesium 1.8 mg/dL (1.6-2.6) 04/26/19 03:11 Total Bilirubin 0.7 mg/dL (0.3-1.0) 04/26/19 03:11 Direct Bilirubin 0.1 mg/dL (0.0-0.2) 04/26/19 03:11 Indirect Bilirubin 0.6 mg/dL (0.0-1.2) 04/26/19 03:11 AST 49 Units/L (13-39) H 04/26/19 03:11 ALT 96 Units/L (7-52) H 04/26/19 03:11 Alkaline Phosphatase 63 Units/L (34-104) 04/26/19 03:11 Lactate Dehydrogenase 187 Units/L (140-271) 04/26/19 03:11 Troponin I < 0.03 ng/mL (< 0.04) 04/26/19 03:11 Serum Total Protein 5.9 g/dL (6.4-8.9) L 04/26/19 03:11 Albumin 3.8 g/dL (3.5-5.7) 04/26/19 03:11 Globulin 2.1 g/dL (2.4-3.5) L 04/26/19 03:11 Albumin/Globulin Ratio 1.8 (1.1-2.2) 04/26/19 03:11 Lipase 19 Units/L (11-82) 04/26/19 03:11 Urine Color Yellow (Yellow) 04/26/19 03:11 Urine Clarity Clear (Clear) 04/26/19 03:11 Urine pH 7.5 pH Units (5.0-8.0) 04/26/19 03:11 Ur Specific [place] < 1.005 (1.010-1.025) L 04/26/19 03:11 Urine Protein Negative mg/dL (Neg-Trace) 04/26/19 03:11 Urine Glucose (UA) Normal mg/dL (Normal) 04/26/19 03:11 Urine Ketones Negative mg/dL (Negative) 04/26/19 03:11 Urine Blood Negative (Negative) 04/26/19 03:11 Urine Nitrite Negative (Negative) 04/26/19 03:11 Urine Bilirubin Negative (Negative) 04/26/19 03:11 Urine Urobilinogen Normal mg/dL (Normal) 04/26/19 03:11 Ur Leukocyte Esterase Negative (Negative) 04/26/19 03:11 Ur Culture Indicated? NO (NO) 04/26/19 03:11 Chlamy pneumoniae PCR Not Detected (Not Detect) 04/26/19 12:00 Adenovirus (PCR) Not Detected (Not Detect) 04/26/19 12:00 B. pertussis DNA (PCR) Not Detected (Not Detect) 04/26/19 12:00 B.parapertussis DNA PCR Not Detected (Not Detect) 04/26/19 12:00 Coronavirus OC43 (PCR) Not Detected (Not Detect) 04/26/19 12:00 Coronavirus HKU1 (PCR) Not Detected (Not Detect) 04/26/19 12:00 Coronavirus 229E (PCR) Not Detected (Not Detect) 04/26/19 12:00 Coronavirus NL63 (PCR) Not Detected (Not Detect) 04/26/19 12:00 Human Metapneumovir PCR Not Detected (Not Detect) 04/26/19 12:00 Influenza A (H1) PCR Not Detected (Not Detect) 04/26/19 12:00 Influ A (H1N1/09) PCR Not Detected (Not Detect) 04/26/19 12:00 Influenza A (H3) PCR Not Detected (Not Detect) 04/26/19 12:00 Influenza A Untype (PCR) Not Detected (Not Detect) 04/26/19 12:00 Influenza Type B (PCR) Not Detected (Not Detect) 04/26/19 12:00 M.pneumoniae DNA (PCR) Not Detected (Not Detect) 04/26/19 12:00 Parainfluenza 1 (PCR) Not Detected (Not Detect) 04/26/19 12:00 Parainfluenza 2 (PCR) Not Detected (Not Detect) 04/26/19 12:00 Parainfluenza 3 (PCR) Not Detected (Not Detect) 04/26/19 12:00 Parainfluenza 4 (PCR) Not Detected (Not Detect) 04/26/19 12:00 RSV (PCR) Not Detected (Not Detect) 04/26/19 12:00 Entero/Rhino (PCR) Not Detected (Not Detect) 04/26/19 12:00
[2019-04-26] MEDS: tiZANidine 4 MG TABLET PO PRN (15:19)
[2019-04-26] MEDS: traMADol 50 MG TABLET PO PRN (20:24)
[2019-04-26] MEDS ORDERED: Famotidine 20 MG TABLET PO SCH (21:00)
[2019-04-26] MEDS ORDERED: Gabapentin 100 MG CAPSULE PO SCH (21:00)
[2019-04-26] MEDS: Fluconazole 100 MG TABLET PO SCH (21:15)
[2019-04-26] MEDS: Acyclovir 200 MG CAPSULE PO SCH (21:15)
[2019-04-27] MEDS: tiZANidine 4 MG TABLET PO PRN (04:41)
[2019-04-27] MEDS ORDERED: Piperacillin/Tazobactam 4.5 GM in 0.9 % Sodium Chloride Mini Bag 100 ML IVPB SCH ×2 (04:45→05:00)
[2019-04-27 05:41] LABS: Basophils % 0.6 %; Eosinophils # 0.1 K/mcL (0.0-0.6); Eosinophils % 1.6 %; Hematocrit 29.8 % (35.3-44.9); Hemoglobin 9.8 g/dL (11.5-15.4); Lymphocytes # 0.7 K/mcL (0.6-4.6); Lymphocytes % 21.9 %; Mean Corpuscular HGB Conc 32.9 g/dL (31.6-35.5); Mean Corpuscular Hemoglobin 29.3 pg (28.0-33.3); Mean Corpuscular Volume 89.2 fL (83.0-100.0); Mean Platelet Volume 11.5 fL (9.4-12.4); Monocytes # 0.3 K/mcL (0.0-1.3); Monocytes % 9.3 %; Neutrophils # 1.8 K/mcL (1.6-8.9); Red Blood Count 3.34 M/mcL (3.82-4.97); Red Cell Distribution Width 12.7 % (11.5-14.5); Segmented Neutrophils % 56.6 %
[2019-04-27 05:43] LABS: Platelet Count 65 K/mcL (140-400); White Blood Count 3.1 K/mcL (4.3-11.1)
[2019-04-27 05:57] LABS: BUN/Creatinine Ratio 12 (6-26); Blood Urea Nitrogen 11 mg/dL (6-20); Carbon Dioxide 26 mEq/L (23-29); Chloride 102 mEq/L (98-107); Glucose 102 mg/dL (70-105); Osmolality,Calculated 284 (280-300); Phosphorous 3.4 mg/dL (2.7-4.5); Sodium 137 mEq/L (136-145); eGFR For African Americans > 60 (> 60); eGFR For Non-African Americans > 60 (> 60)
[2019-04-27 06:05] LABS: Hypochromasia Present (Not Present); Platelet Estimate Decreased (Normal); Reactive Lymphocytes Present (Not Present)
[2019-04-27 06:30] VITALS: BP 122/76
[2019-04-27] MEDS: Acyclovir 200 MG CAPSULE PO SCH (08:17)
[2019-04-27] MEDS: Fluconazole 100 MG TABLET PO SCH (08:17)
[2019-04-27] MEDS: Metoprolol 100 MG TABLET PO SCH (08:17)
[2019-04-27] MEDS: traMADol 50 MG TABLET PO PRN (08:20)
[2019-04-27] MEDS ORDERED: Sennosides 8.6 MG TABLET PO SCH (09:00)
--- NOTE | 2019-04-27 09:34 | Discharge Summary ---
- NOTES TO OUTPATIENT PROVIDER Notes to Outpatient Provider: Presented with fever, had neutropena, improved with the neupogen. Dcd on antiviral, antifungal and antibiotics fro 10 days Orders not resulted at time of discharge: Pending orders 04/26/19 03:01 Culture,Blood [BC] Stat 04/26/19 05:30 Culture,Blood [BC] Stat Date of Encounter: 04/27/19 Time of Encounter: 09:00 - Discharge Diagnosis (1) Neutropenic fever Priority: Primary Status: Acute (2) Hypertension Priority: Secondary Status: Chronic Qualifiers: Hypertension type: essential hypertension Qualified Code(s): I10 - Essential (primary) hypertension (3) Hypothyroidism Priority: Secondary Status: Chronic Qualifiers: Hypothyroidism type: acquired Qualified Code(s): E03.9 - Hypothyroidism, unspecified Hospital course: Ms. Gonzalez is a 53 year old female with a past medical history significant for Hodgkin lymphoma, presented to the hospital with the complaints of fever. Patient recently had a chemotherapy done, following that she was having low- grade fever. Yesterday find out that her fever was 101 and she came to the e mergency department. In the ED, patient was hemodynamically stable. She was tachycardic with a temperature of 100.2. Lab work showed WBC count of 0.9, ANC of 0.1. Patient was given Neupogen, IV antibiotics Zosyn, started on oral acyclovir and oral fluconazole and admitted to the hospital for further management. Today, patient is feeling better. Denies any fever, chills, rigors. Her WBC count today is 3.1, ANC of 1.8. Discuss with oncology service, patient will be discharged on oral fluconazole, oral acyclovir, oral ciprofloxacin for 10 more days. No Neupogen needed at this point. Patient is agreeable to the plan. Patient is advised to follow up with oncology in 1 week. Of note, influenza was negative, strep test was negative, blood cultures collected from [facility] and peripheral lines have been negative so far. Patient is being discharged in stable condition - Time Spent with Patient Total time spent providing and/or coordinating discharge services: 35 minutes - Discharge Medications Prescriptions: New Ciprofloxacin [Cipro] 500 mg PO BID 10 Days #20 tablet Polyethylene Glycol 3350 [MiraLAX] 17 gm PO DAILY PRN powd.pack PRN Reason: Constipation Acyclovir [Zovirax] 400 mg PO BID 10 Days #20 capsule Fluconazole [Diflucan] 400 mg PO DAILY 10 Days #40 tablet Continued Montelukast [Singulair] 10 mg PO DAILY Metoprolol [Lopressor] 100 mg PO BID Diclofenac Sodium [Voltaren] 75 mg PO HS Gabapentin [Neurontin] 100 mg PO HS Tizanidine HCl 4 mg PO BID PRN PRN Reason: Muscle Pain Famotidine [Pepcid] 40 mg PO HS Ubidecarenone [Coq10] 100 mg PO DAILY Dicyclomine Hcl [Bentyl] 20 mg PO QID PRN PRN Reason: Bowel Movement Quetiapine Fumarate [Seroquel] 50 mg PO HS Omeprazole [PriLOSEC] 40 mg PO DAILY Levothyroxine [Synthroid] 100 mcg PO DAILY Home Medications: Metoprolol [Lopressor] 100 mg PO BID 02/07/17 [History] Montelukast [Singulair] 10 mg PO DAILY 02/07/17 [History] Diclofenac Sodium [Voltaren] 75 mg PO HS 07/13/18 [History] Gabapentin [Neurontin] 100 mg PO HS 07/13/18 [History] Tizanidine HCl 4 mg PO BID PRN 08/16/18 [History] Dicyclomine Hcl [Bentyl] 20 mg PO QID PRN 03/04/19 [History] Famotidine [Pepcid] 40 mg PO HS 03/04/19 [History] Ubidecarenone [Coq10] 100 mg PO DAILY 03/04/19 [History] Levothyroxine [Synthroid] 100 mcg PO DAILY 04/26/19 [History] Omeprazole [PriLOSEC] 40 mg PO DAILY 04/26/19 [History] Quetiapine Fumarate [Seroquel] 50 mg PO HS 04/26/19 [History] Acyclovir [Zovirax] 400 mg PO BID 10 Days #20 capsule 04/27/19 [Rx] Ciprofloxacin [Cipro] 500 mg PO BID 10 Days #20 tablet 04/27/19 [Rx] Fluconazole [Diflucan] 400 mg PO DAILY 10 Days #40 tablet 04/27/19 [Rx] Polyethylene Glycol 3350 [MiraLAX] 17 gm PO DAILY PRN powd.pack 04/27/19 [Rx] Allergies/Adverse Reactions: Allergy/AdvReac Type Severity Reaction Status Date / Time aspirin [ASA] AdvReac Gastrointestinal Verified 04/26/19 06:07 Upset clopidogrel [From Plavix] AdvReac EXCESSIVE Verified 04/26/19 06:07 BRUISING Erythromycin Base AdvReac N/V Verified 04/26/19 06:07 [From E-Mycin] pravastatin AdvReac Muscle Pain Verified 04/26/19 06:07 simvastatin [From Zocor] AdvReac Muscle Pain Verified 04/26/19 06:07 Date of admission: 04/26/19 08:34 Primary care physician: Shelia Reilly CNP Consults: 04/26/19 08:17 Consult to Oncology Hematology [CONS] Routine Consulting Provider: Navdeep Diallo Reason for Consult: febrile neutropenia Call Completed: No - Constitutional Vitals: Temp Pulse Resp BP Pulse Ox 98.4 F 74 15 122/76 96 04/27/19 06:29 04/27/19 06:29 04/27/19 06:29 04/27/19 06:29 04/27/19 06:29 Exam: General: Alert and oriented, no physical distress, able to follow commands. HEENT: No thyromegaly, no lymphadenopathy, no discharge. Eyes: No discharge. Normal conjuctiva, no icterus Respiratory: Normal vesicular breathing, no added sounds, breathing equal in both sides. CVS: Normal heart sounds, no murmurs, regular rhthm, no edema Extremities: No peripheral edema, peripheral pulses intact. Lymph nodes: No lymphadenopathy Gastrointestinal: Soft, nontender abdomen, normal abdominal sounds. No distention noted. Genitourinary: No paravertebral tenderness. Skin: No rash, ulcers or wound. Neurological: Alert and oriented. No focal deficits. Cranial nerves II-XII intact. - Patient Status Disposition: Home, Self-Care Condition: Good Functional capacity at discharge: independent ambulation Overall status at discharge: patient is progressing back to baseline - Discharge Instructions Follow Up With: Shelia Reilly CNP [Primary Care Provider] - - Diet and Activity Activity: increase activity as tolerated Diet: advance to your usual diet
--- NOTE | 2019-04-28 00:24 | Electrocardiograph Report ---
[employer] Test Date: 2019-04-26 Pat Name: Milly Gonzalez Department: EXAM1 Room: 3A25 Gender: F Supervisor Assembly Room: : 1965 Requested By: Jatinder Dyson Order Number: [id number] Reading MD: Ray Hurtado Measurements Intervals [place] Rate: 97 P: 62 VA: 161 QRS: 46 QRSD: 98 T: 18 QT: 347 QTc: 441 Interpretive Statements Sinus rhythm Probable left atrial enlargement RSR' in V1 or V2, right VCD or RVH Electronically Signed On 04-28-2019 0:22:41 EDT by Ray Hurtado
== END 2019-04-27 11:40 | disposition home or self-care (01) | DRG 872 ==
LOC: EMEROOARM 01:02 → 3ANU 08:34
PROVIDERS: ADMIT Internal Medicine; ATTEND Internal Medicine

== ENCOUNTER 2019-07-16 15:26 | Observation (INO) ==
[2019-07-16] MEDS ORDERED: 0.9 % Sodium Chloride 1,000 ML IVC ONE (16:29)
[2019-07-16 17:42] LABS: Hematocrit 26.6 % (35.3-44.9); Hemoglobin 9.1 g/dL (11.5-15.4); Immature Platelets 5.7 % (1.1-6.1); Mean Corpuscular HGB Conc 34.2 g/dL (31.6-35.5); Mean Corpuscular Hemoglobin 33.2 pg (28.0-33.3); Mean Corpuscular Volume 97.1 fL (83.0-100.0); Mean Platelet Volume 10.5 fL (9.4-12.4); Red Blood Count 2.74 M/mcL (3.82-4.97); Red Cell Distribution Width 17.3 % (11.5-14.5); White Blood Count 5.1 K/mcL (4.3-11.1)
[2019-07-16 18:02] LABS: BUN/Creatinine Ratio 19 (6-26); Blood Urea Nitrogen 13 mg/dL (6-20); Calcium 9.4 mg/dL (8.6-10.3); Carbon Dioxide 26 mEq/L (23-29); Chloride 108 mEq/L (98-107); Glucose 94 mg/dL (70-105); Osmolality,Calculated 292 (280-300); Potassium 3.7 mEq/L (3.5-5.1); Sodium 141 mEq/L (136-145); eGFR For African Americans > 60 (> 60); eGFR For Non-African Americans > 60 (> 60)
[2019-07-16 18:06] LABS: Troponin I 0.05 ng/mL (< 0.04)
[2019-07-16] MEDS ORDERED: Aspirin 81 MG TAB.CHEW PO STA (18:41)
[2019-07-16] MEDS ORDERED: Ondansetron 4 MG/2 ML VIAL IVP ONE (21:55)
[2019-07-17] MEDS ORDERED: Naloxone 0.4 MG/ML INJ IVP PRN (00:36)
[2019-07-17] MEDS ORDERED: Melatonin 3 MG TABLET PO PRN (00:48)
[2019-07-17 01:29] LABS: Troponin I 0.05 ng/mL (< 0.04)
[2019-07-17 01:54] LABS: Hemoglobin 8.8 g/dL (11.5-15.4); Mean Platelet Volume 11.7 fL (9.4-12.4)
[2019-07-17 01:56] LABS: Hematocrit 25.4 % (35.3-44.9); Immature Platelets 5.1 % (1.1-6.1); Mean Corpuscular HGB Conc 34.6 g/dL (31.6-35.5); Mean Corpuscular Hemoglobin 33.5 pg (28.0-33.3); Mean Corpuscular Volume 96.6 fL (83.0-100.0); Monocytes # 0.1 K/mcL (0.0-1.3); Red Blood Count 2.63 M/mcL (3.82-4.97); Red Cell Distribution Width 17.2 % (11.5-14.5); White Blood Count 2.7 K/mcL (4.3-11.1)
[2019-07-17 02:02] LABS: Alanine Aminotransferase 8 Units/L (7-52); Albumin 3.9 g/dL (3.5-5.7); Albumin/Globulin Ratio 1.9 (1.1-2.2); Alkaline Phosphatase 75 Units/L (34-104); Aspartate Amino Transferase 12 Units/L (13-39); BUN/Creatinine Ratio 16 (6-26); Bilirubin,Total 0.7 mg/dL (0.3-1.0); Blood Urea Nitrogen 9 mg/dL (6-20); Calcium 8.8 mg/dL (8.6-10.3); Carbon Dioxide 24 mEq/L (23-29); Chloride 106 mEq/L (98-107); Globulin 2.1 g/dL (2.4-3.5); Glucose 86 mg/dL (70-105); Osmolality,Calculated 288 (280-300); Platelet Count 53 K/mcL (140-400); Potassium 3.2 mEq/L (3.5-5.1); Sodium 140 mEq/L (136-145); eGFR For African Americans > 60 (> 60); eGFR For Non-African Americans > 60 (> 60)
[2019-07-17] MEDS ORDERED: 0.9 % Sodium Chloride 1,000 ML IVC SCH (02:30)
[2019-07-17 02:42] LABS: Eosinophils # 0.1 K/mcL (0.0-0.6); Lymphocytes # 0.5 K/mcL (0.6-4.6); Neutrophils # 2.1 K/mcL (1.6-8.9)
[2019-07-17 02:43] LABS: Platelet Estimate Decreased (Normal)
[2019-07-17] MEDS ORDERED: Nitroglycerin 0.4 MG TAB.SUBL SL PRN (02:44)
[2019-07-17] MEDS ORDERED: Ondansetron 4 MG/2 ML VIAL IVP PRN (06:15)
[2019-07-17] MEDS: Fluconazole 100 MG TABLET PO SCH (08:38)
[2019-07-17] MEDS: Metoprolol 100 MG TABLET PO SCH ×2 (08:38→21:46)
[2019-07-17] MEDS: Famotidine 20 MG TABLET PO SCH (08:38)
[2019-07-17] MEDS: Acyclovir 200 MG CAPSULE PO SCH (08:39)
[2019-07-17] MEDS ORDERED: Acetaminophen 325 MG TABLET PO PRN (08:50)
[2019-07-17] MEDS ORDERED: Ketorolac 15 MG/ML VIAL IVP PRN (08:50)
[2019-07-17] MEDS ORDERED: Prochlorperazine 10 MG/2 ML VIAL IVP PRN (08:51)
[2019-07-17] MEDS: Potassium Chloride Elixir 20 MEQ/15 ML UDC PO SCH ×2 (10:12→15:10)
[2019-07-17] MEDS: amLODIPine 5 MG TABLET PO SCH (12:58)
[2019-07-17] MEDS ORDERED: Potassium Chloride Elixir 20 MEQ/15 ML UDC PO SCH (15:00)
[2019-07-17] MEDS ORDERED: Diclofenac Sodium (DR) 75 MG TABLET.DR PO SCH (21:00)
[2019-07-18 05:34] LABS: Basophils % 1.9 %; Eosinophils % 1.9 %; Hematocrit 26.6 % (35.3-44.9); Hemoglobin 9.3 g/dL (11.5-15.4); Lymphocytes # 0.3 K/mcL (0.6-4.6); Lymphocytes % 59.3 %; Mean Corpuscular Hemoglobin 33.5 pg (28.0-33.3); Mean Corpuscular Volume 95.7 fL (83.0-100.0); Mean Platelet Volume 12.3 fL (9.4-12.4); Monocytes # 0.1 K/mcL (0.0-1.3); Monocytes % 9.3 %; Red Blood Count 2.78 M/mcL (3.82-4.97); Red Cell Distribution Width 15.8 % (11.5-14.5); Segmented Neutrophils % 27.6 %
[2019-07-18 05:54] LABS: BUN/Creatinine Ratio 20 (6-26); Blood Urea Nitrogen 14 mg/dL (6-20); Calcium 9.3 mg/dL (8.6-10.3); Carbon Dioxide 25 mEq/L (23-29); Chloride 105 mEq/L (98-107); Glucose 99 mg/dL (70-105); Magnesium 2.1 mg/dL (1.6-2.6); Osmolality,Calculated 287 (280-300); Phosphorous 3.3 mg/dL (2.7-4.5); Potassium 4.2 mEq/L (3.5-5.1); Sodium 138 mEq/L (136-145); eGFR For African Americans > 60 (> 60); eGFR For Non-African Americans > 60 (> 60)
[2019-07-18 06:25] LABS: Neutrophils # 0.1 K/mcL (1.6-8.9); Platelet Count 52 K/mcL (140-400); White Blood Count 0.5 K/mcL (4.3-11.1)
[2019-07-18 08:18] VITALS: BP 136/110
[2019-07-18] MEDS: Acyclovir 200 MG CAPSULE PO SCH (09:26)
[2019-07-18] MEDS: Fluconazole 100 MG TABLET PO SCH (09:26)
[2019-07-18] MEDS: amLODIPine 5 MG TABLET PO SCH (09:27)
[2019-07-18] MEDS: Famotidine 20 MG TABLET PO SCH (09:27)
[2019-07-18] MEDS: Metoprolol 100 MG TABLET PO SCH (09:27)
[2019-07-18] MEDS ORDERED: 0.9 % Sodium Chloride 1,000 ML IVC SCH (11:15)
[2019-07-18] MEDS ORDERED: Isovue-370 500 ML BOTTLE IVP ONE (12:21)
== END 2019-07-18 17:58 | disposition home or self-care (01) ==
LOC: 2NENU 15:26 → EMEROOARM 15:26 → 2NENU 22:20
PROVIDERS: ADMIT Internal Medicine; ATTEND Internal Medicine

== ENCOUNTER 2019-09-05 14:20 | Observation (INO) ==
[2019-09-05] MEDS ORDERED: 0.9 % Sodium Chloride 1,000 ML IVC ONE (14:23)
[2019-09-05] MEDS ORDERED: Acetaminophen 325 MG TABLET PO ONE (14:42)
[2019-09-05 15:02] LABS: Basophils % 0.2 %; Eosinophils # 0.1 K/mcL (0.0-0.6); Eosinophils % 1.1 %; Hematocrit 33.2 % (35.3-44.9); Hemoglobin 11.2 g/dL (11.5-15.4); Immature Granulocytes % 0.4 % (0-4); Lymphocytes # 0.7 K/mcL (0.6-4.6); Lymphocytes % 12.4 %; Mean Corpuscular HGB Conc 33.7 g/dL (31.6-35.5); Mean Corpuscular Volume 103.8 fL (83.0-100.0); Mean Platelet Volume 10.6 fL (9.4-12.4); Monocytes # 0.5 K/mcL (0.0-1.3); Monocytes % 9.5 %; Platelet Count 180 K/mcL (140-400); Red Cell Distribution Width 13.7 % (11.5-14.5); Segmented Neutrophils % 76.4 %; White Blood Count 5.3 K/mcL (4.3-11.1)
[2019-09-05 15:13] LABS: Bilirubin,Urine Negative (Negative); Blood,Urine Negative (Negative); Clarity,Urine Clear (Clear); Color,Urine Yellow (Yellow); Glucose,Urine (UA) Normal (Normal); Ketones,Urine Negative (Negative); Leukocyte Esterase,Urine Trace (Negative); Nitrite,Urine Negative (Negative); Protein,Urine Negative (Neg-Trace); Urobilinogen,Urine Normal (Normal)
[2019-09-05 15:16] LABS: Bacteria,Urine None Seen per hpf (None-Few); Hyaline Casts,Urine None Seen per lpf (None-Few); RBC,Urine 0-3 per hpf (0-3); Squamous Epithelial Cell,Urine None Seen per lpf (None-Few); WBC,Urine 0-3 per hpf (0-3)
[2019-09-05 15:35] LABS: Alanine Aminotransferase 16 Units/L (7-52); Albumin 4.5 g/dL (3.5-5.7); Albumin/Globulin Ratio 1.9 (1.1-2.2); Alkaline Phosphatase 71 Units/L (34-104); Aspartate Amino Transferase 21 Units/L (13-39); BUN/Creatinine Ratio 13 (6-26); Bilirubin,Total 0.4 mg/dL (0.3-1.0); Blood Urea Nitrogen 12 mg/dL (6-20); Calcium 9.6 mg/dL (8.6-10.3); Carbon Dioxide 25 mEq/L (23-29); Chloride 106 mEq/L (98-107); Globulin 2.4 g/dL (2.4-3.5); Glucose 97 mg/dL (70-105); Osmolality,Calculated 290 (280-300); Potassium 3.9 mEq/L (3.5-5.1); Sodium 140 mEq/L (136-145); Total Protein 6.9 g/dL (6.4-8.9); eGFR For African Americans > 60 (> 60); eGFR For Non-African Americans > 60 (> 60)
[2019-09-05 15:51] LABS: Troponin I 0.16 ng/mL (< 0.04)
[2019-09-05] MEDS ORDERED: Acetaminophen 325 MG TABLET PO PRN (17:31)
[2019-09-05] MEDS ORDERED: Ondansetron 4 MG/2 ML VIAL IVP PRN (17:31)
[2019-09-05] MEDS ORDERED: Naloxone 0.4 MG/ML INJ IVP PRN (17:31)
[2019-09-05] MEDS ORDERED: *HR* Heparin 5,000 UNIT/ML VIAL IVP ONE (17:34)
[2019-09-05] MEDS ORDERED: *HR* Heparin 5,000 UNIT/ML VIAL IVP PRN ×2 (17:34)
[2019-09-05] MEDS ORDERED: Heparin 25,000 UNIT/250 ML D5W 25,000 UNIT/250 ML IV.SOLN IVC SCH (17:45)
[2019-09-05 20:47] LABS: INR 0.9; Prothrombin Time 10.2 Seconds (9.4-12.1); Prothrombin Time 10.8 Seconds (9.4-12.1)
[2019-09-05] MEDS ORDERED: Loratadine 10 MG TABLET PO SCH (21:00)
[2019-09-05] MEDS ORDERED: Gabapentin 100 MG CAPSULE PO SCH (21:00)
[2019-09-05] MEDS ORDERED: tiZANidine 4 MG TABLET PO SCH (21:00)
[2019-09-05 21:09] LABS: Hematocrit 30.9 % (35.3-44.9); Hemoglobin 10.4 g/dL (11.5-15.4); Mean Corpuscular HGB Conc 33.7 g/dL (31.6-35.5); Mean Corpuscular Hemoglobin 34.2 pg (28.0-33.3); Mean Corpuscular Volume 101.6 fL (83.0-100.0); Mean Platelet Volume 10.7 fL (9.4-12.4); Platelet Count 187 K/mcL (140-400); Red Blood Count 3.04 M/mcL (3.82-4.97); Red Cell Distribution Width 13.6 % (11.5-14.5); White Blood Count 5.2 K/mcL (4.3-11.1)
[2019-09-05] MEDS: Diclofenac Sodium (DR) 75 MG TABLET.DR PO SCH (22:35)
[2019-09-05] MEDS: Metoprolol XL (24 HR) Succ 50 MG TAB.ER.24H PO SCH (22:35)
[2019-09-06 03:27] LABS: Basophils % 0.2 %; Eosinophils # 0.1 K/mcL (0.0-0.6); Eosinophils % 1.2 %; Hematocrit 28.9 % (35.3-44.9); Hemoglobin 9.6 g/dL (11.5-15.4); Immature Granulocytes % 0.2 % (0-4); Lymphocytes # 0.7 K/mcL (0.6-4.6); Lymphocytes % 16.9 %; Mean Corpuscular HGB Conc 33.2 g/dL (31.6-35.5); Mean Corpuscular Hemoglobin 34.5 pg (28.0-33.3); Mean Platelet Volume 10.7 fL (9.4-12.4); Monocytes # 0.4 K/mcL (0.0-1.3); Monocytes % 10.1 %; Platelet Count 141 K/mcL (140-400); Red Blood Count 2.78 M/mcL (3.82-4.97); Red Cell Distribution Width 13.6 % (11.5-14.5); Segmented Neutrophils % 71.4 %; White Blood Count 4.3 K/mcL (4.3-11.1)
[2019-09-06 03:50] LABS: BUN/Creatinine Ratio 13 (6-26); Blood Urea Nitrogen 10 mg/dL (6-20); Calcium 8.9 mg/dL (8.6-10.3); Carbon Dioxide 24 mEq/L (23-29); Chloride 107 mEq/L (98-107); Chol/HDL Ratio 5.9 (0-4.9); Cholesterol 260 mg/dL (< 200); Glucose 93 mg/dL (70-105); HDL Cholesterol 44 mg/dL (40-59); LDL Cholesterol,Calculated 191 mg/dL (0-99); Osmolality,Calculated 285 (280-300); Phosphorous 4.2 mg/dL (2.7-4.5); Potassium 3.8 mEq/L (3.5-5.1); Sodium 138 mEq/L (136-145); Triglycerides 125 mg/dL (< 150); eGFR For African Americans > 60 (> 60); eGFR For Non-African Americans > 60 (> 60)
[2019-09-06] MEDS: Diclofenac Sodium (DR) 75 MG TABLET.DR PO SCH (09:47)
[2019-09-06] MEDS: Metoprolol XL (24 HR) Succ 50 MG TAB.ER.24H PO SCH (09:47)
[2019-09-06 11:00] VITALS: BP 113/72
[2019-09-06] MEDS ORDERED: 0.9 % Sodium Chloride 500 ML IVC ONE (12:57)
== END 2019-09-06 15:04 | disposition home or self-care (01) ==
LOC: 3BNU 14:20 → EMEROOARM 14:20 → SUATTDRO 18:28 → 3BNU 20:15
PROVIDERS: ADMIT Internal Medicine; ATTEND Internal Medicine

== ENCOUNTER 2021-02-09 19:53 | Observation (INO) ==
[2021-02-09 21:25] LABS: Basophils % 0.3 %; Eosinophils # 0.1 K/mcL (0.0-0.6); Hematocrit 35.6 % (35.3-44.9); Hemoglobin 11.4 g/dL (11.5-15.4); Immature Granulocytes % 0.3 % (0-4); Lymphocytes # 2.1 K/mcL (0.6-4.6); Lymphocytes % 32.2 %; Mean Corpuscular Hemoglobin 29.6 pg (28.0-33.3); Mean Corpuscular Volume 92.5 fL (83.0-100.0); Mean Platelet Volume 10.3 fL (9.4-12.4); Monocytes # 0.5 K/mcL (0.0-1.3); Monocytes % 7.7 %; Neutrophils # 3.8 K/mcL (1.6-8.9); Platelet Count 201 K/mcL (140-400); Red Blood Count 3.85 M/mcL (3.82-4.97); Red Cell Distribution Width 13.2 % (11.5-14.5); Segmented Neutrophils % 57.5 %; White Blood Count 6.6 K/mcL (4.3-11.1)
[2021-02-09 21:46] LABS: BUN/Creatinine Ratio 16 (6-26); Blood Urea Nitrogen 18 mg/dL (6-20); Calcium 9.5 mg/dL (8.6-10.3); Carbon Dioxide 25 mEq/L (23-29); Chloride 109 mEq/L (98-107); Glucose 112 mg/dL (70-105); Osmolality,Calculated 295 (280-300); Potassium 4.1 mEq/L (3.5-5.1); Sodium 141 mEq/L (136-145); eGFR For African Americans > 60 (> 60); eGFR For Non-African Americans 50 (> 60)
[2021-02-09 21:47] LABS: Troponin I < 0.03 ng/mL (< 0.04)
[2021-02-09] MEDS ORDERED: tiZANidine 4 MG TABLET PO ONE (23:59)
[2021-02-09] MEDS ORDERED: Diclofenac Sodium (DR) 75 MG TABLET.DR PO ONE (23:59)
[2021-02-10] MEDS ORDERED: Perflutren Lipid Microsphere 1.3 ML in 0.9 % Sodium Chloride 8.7 ML IVP PRN (00:23)
[2021-02-10] MEDS ORDERED: Budesonide/Formoterol 80/4.5 1 PUFF INH IH PRN (01:12)
[2021-02-10] MEDS ORDERED: *HR* LORazepam 2 MG/ML VIAL IVP PRN (01:15)
[2021-02-10] MEDS ORDERED: Naloxone 0.4 MG/ML INJ IVP PRN (01:16)
[2021-02-10] MEDS: Acetaminophen 325 MG TABLET PO PRN ×2 (01:42→15:46)
[2021-02-10 03:39] LABS: Hematocrit 30.6 % (35.3-44.9); Hemoglobin 9.9 g/dL (11.5-15.4); Mean Corpuscular HGB Conc 32.4 g/dL (31.6-35.5); Mean Corpuscular Hemoglobin 29.9 pg (28.0-33.3); Mean Corpuscular Volume 92.4 fL (83.0-100.0); Mean Platelet Volume 10.2 fL (9.4-12.4); Platelet Count 179 K/mcL (140-400); Red Blood Count 3.31 M/mcL (3.82-4.97); Red Cell Distribution Width 13.2 % (11.5-14.5); White Blood Count 6.7 K/mcL (4.3-11.1)
[2021-02-10 03:57] LABS: BUN/Creatinine Ratio 20 (6-26); Blood Urea Nitrogen 19 mg/dL (6-20); Calcium 8.9 mg/dL (8.6-10.3); Carbon Dioxide 23 mEq/L (23-29); Chloride 108 mEq/L (98-107); Cholesterol 195 mg/dL (< 200); Glucose 102 mg/dL (70-105); HDL Cholesterol 39 mg/dL (40-59); LDL Cholesterol,Calculated 136 mg/dL (< 100); Osmolality,Calculated 290 (280-300); Potassium 3.9 mEq/L (3.5-5.1); Sodium 139 mEq/L (136-145); Triglycerides 101 mg/dL (< 150); eGFR For African Americans > 60 (> 60); eGFR For Non-African Americans > 60 (> 60)
[2021-02-10 04:17] LABS: Thyroid Stimulating Hormone 0.02 mcIU/mL (0.340-5.600)
[2021-02-10 04:33] LABS: Folate > 22.3 ng/mL (3.0-16.0); Vitamin B12 372 pg/mL (250-1100)
[2021-02-10] MEDS ORDERED: *HR* Heparin 5,000 UNIT/ML VIAL SQ SCH (06:00)
[2021-02-10] MEDS: Aspirin Enteric Coated 81 MG Tablet PO SCH (08:20)
[2021-02-10 08:49] LABS: Estimated Average Glucose 111 mg/dl; Hemoglobin A1C 5.5 %
[2021-02-10] MEDS ORDERED: Diclofenac Sodium (DR) 75 MG TABLET.DR PO SCH (09:00)
[2021-02-10] MEDS: Metoprolol 100 MG TABLET PO SCH ×2 (10:23→20:36)
[2021-02-10] MEDS ORDERED: DilTIAZem CD (24hr) 120 MG CAP.ER.24H PO SCH (11:00)
[2021-02-10 11:21] LABS: Triiodothyronine (T3) Free 3.77 pg/mL (2.50-3.90)
[2021-02-10] MEDS: Budesonide/Formoterol 80/4.5 1 PUFF INH IH SCH (20:23)
[2021-02-10] MEDS: tiZANidine 4 MG TABLET PO SCH (20:36)
[2021-02-10] MEDS: Apixaban 5 MG TABLET PO SCH (20:36)
[2021-02-10] MEDS ORDERED: QUEtiapine Fumarate 100 MG TABLET PO SCH (21:00)
[2021-02-11] MEDS: Gabapentin 100 MG CAPSULE PO SCH ×2 (00:51→22:21)
[2021-02-11 01:27] LABS: Hematocrit 32.2 % (35.3-44.9); Hemoglobin 10.7 g/dL (11.5-15.4); Mean Corpuscular HGB Conc 33.2 g/dL (31.6-35.5); Mean Corpuscular Hemoglobin 30.1 pg (28.0-33.3); Mean Corpuscular Volume 90.4 fL (83.0-100.0); Mean Platelet Volume 10.1 fL (9.4-12.4); Platelet Count 192 K/mcL (140-400); Red Blood Count 3.56 M/mcL (3.82-4.97); Red Cell Distribution Width 12.5 % (11.5-14.5); White Blood Count 5.3 K/mcL (4.3-11.1)
[2021-02-11 01:55] LABS: BUN/Creatinine Ratio 24 (6-26); Blood Urea Nitrogen 20 mg/dL (6-20); Calcium 9.3 mg/dL (8.6-10.3); Carbon Dioxide 23 mEq/L (23-29); Chloride 106 mEq/L (98-107); Glucose 85 mg/dL (70-105); Osmolality,Calculated 286 (280-300); Potassium 4.1 mEq/L (3.5-5.1); Sodium 137 mEq/L (136-145); eGFR For African Americans > 60 (> 60); eGFR For Non-African Americans > 60 (> 60)
[2021-02-11] MEDS: Budesonide/Formoterol 80/4.5 1 PUFF INH IH SCH ×2 (07:15→22:31)
[2021-02-11] MEDS: Apixaban 5 MG TABLET PO SCH ×2 (08:21→22:21)
[2021-02-11] MEDS: Aspirin Enteric Coated 81 MG Tablet PO SCH (08:21)
[2021-02-11] MEDS: Metoprolol 100 MG TABLET PO SCH ×2 (08:21→22:21)
[2021-02-11] MEDS ORDERED: QUEtiapine Fumarate 100 MG TABLET PO SCH (21:00)
[2021-02-11] MEDS: tiZANidine 4 MG TABLET PO SCH (22:22)
[2021-02-12] MEDS: Budesonide/Formoterol 80/4.5 1 PUFF INH IH SCH (07:11)
[2021-02-12] MEDS: Metoprolol 100 MG TABLET PO SCH (08:27)
[2021-02-12] MEDS: Aspirin Enteric Coated 81 MG Tablet PO SCH (08:27)
[2021-02-12] MEDS: Apixaban 5 MG TABLET PO SCH (08:27)
[2021-02-12] MEDS ORDERED: Cyanocobalamin (B-12) 1,000 MCG TABLET PO SCH (09:00)
[2021-02-12] MEDS ORDERED: UBIDECARENONE 100 MG PO SCH (09:00)
[2021-02-12] MEDS ORDERED: Multivit/Ca/Min/Fe/FA 1 TAB TABLET PO SCH (09:00)
[2021-02-12] MEDS ORDERED: Furosemide 20 MG TABLET PO SCH (09:00)
[2021-02-12 10:46] VITALS: BP 113/80
== END 2021-02-12 15:22 | disposition home or self-care (01) ==
LOC: 2ANU 19:53 → EMEROOARM 19:53 → SUATTDRO 02-10 00:14 → 2ANU 02-10 01:10
PROVIDERS: ADMIT Student in an Organized Health Care Education/Training Program; ATTEND Internal Medicine

== ENCOUNTER 2021-10-15 12:12 | Inpatient (IN) ==
[~2021-10-15 12:12] MED LIST: *HR* FentaNYL (PF) 100 MCG/2 ML VIAL ONE; *HR* Midazolam HCl 2 MG/2 ML VIAL ONE; *HR* Propofol 200 MG/20 ML VIAL IVP ONE; *HR* Rocuronium Bromide 50 MG/5 ML VIAL ONE; Ketamine HCL *QUVA* 50mg (1mL) SYRINGE ONE; Ondansetron 4 MG/2 ML VIAL ONE
[2021-10-15] MEDS ORDERED: CeFAZolin Syr 2,000MG/20 ML 2,000 MG/20 ML SYRINGE IVPB ONE (13:09)
[2021-10-15] MEDS ORDERED: Ringers Solution, Lactated 1,000 ML IVC SCH (13:15)
[2021-10-15] MEDS ORDERED: Aspirin 81 MG TAB.CHEW ONE (13:26)
[2021-10-15] MEDS ORDERED: *HR* OxyCODONE ER (12 HR) 10 MG TABLET PO ONE (13:26)
[2021-10-15] MEDS ORDERED: *HR* HYDROmorphone PF 0.5 MG/0.5 ML SYRINGE IVP PRN (13:28)
[2021-10-15] MEDS: Aspirin 81 MG TAB.CHEW PO ONE ×2 (13:30→13:46)
[2021-10-15] MEDS: *HR* OxyCODONE ER (12 HR) 10 MG TABLET PO ONE ×2 (13:33→13:43)
[2021-10-15] MEDS ORDERED: Acetaminophen IV 1,000 MG/100 ML BAG IVPB ONE (13:34)
[2021-10-15] MEDS ORDERED: Vancomycin 1,000 MG VIAL ONE (14:47)
[2021-10-15] MEDS ORDERED: *HR* HYDROMORPHONE 2 MG/ML VIAL ONE (15:20)
[2021-10-15] MEDS ORDERED: Sugammadex Sodium 200 MG/2 ML VIAL IV ONE (16:58)
[2021-10-15] MEDS ORDERED: Acetaminophen IV 1,000 MG/100 ML BAG IVPB STA (18:24)
[2021-10-15] MEDS ORDERED: Ondansetron 4 MG/2 ML VIAL IVP PRN (19:26)
[2021-10-15] MEDS ORDERED: Budesonide/Formoterol 80/4.5 1 PUFF INH IH PRN (19:34)
[2021-10-15] MEDS: Gabapentin 100 MG CAPSULE PO SCH (22:20)
[2021-10-15] MEDS: QUEtiapine Fumarate 100 MG TABLET PO SCH (22:21)
[2021-10-15] MEDS: tiZANidine 4 MG TABLET PO SCH (22:21)
[2021-10-15] MEDS: Metoprolol 100 MG TABLET PO SCH (22:21)
[2021-10-15] MEDS: Budesonide/Formoterol 80/4.5 1 PUFF INH IH SCH (23:11)
[2021-10-15] MEDS: Diclofenac Sodium (DR) 75 MG TABLET.DR PO SCH (23:32)
[2021-10-15] MEDS: CeFAZolin 2 GM/120 ML BAG IVPB SCH (23:33)
[2021-10-16] MEDS: Levothyroxine 25 MCG TABLET PO SCH (06:05)
[2021-10-16] MEDS ORDERED: UBIDECARENONE 100 MG PO SCH (09:00)
[2021-10-16] MEDS: Multivit/Ca/Min/Fe/FA 1 TAB TABLET PO SCH (09:06)
[2021-10-16] MEDS: Metoprolol 100 MG TABLET PO SCH ×2 (09:06→20:48)
[2021-10-16] MEDS: CeFAZolin 2 GM/120 ML BAG IVPB SCH (09:06)
[2021-10-16] MEDS: Cyanocobalamin (B-12) 1,000 MCG TABLET PO SCH (09:06)
[2021-10-16] MEDS: Furosemide 20 MG TABLET PO SCH (09:06)
[2021-10-16] MEDS: *HR* OxyCODONE Immed Rel 5 MG TABLET PO PRN (09:16)
[2021-10-16] MEDS: Budesonide/Formoterol 80/4.5 1 PUFF INH IH SCH ×2 (10:51→20:49)
[2021-10-16 13:54] LABS: Basophils % 0.1 %; Hematocrit 28.1 % (35.3-44.9); Hemoglobin 8.8 g/dL (11.5-15.4); Immature Granulocytes % 0.4 % (0-4); Lymphocytes # 1.8 K/mcL (0.6-4.6); Lymphocytes % 13.4 %; Mean Corpuscular HGB Conc 31.3 g/dL (31.6-35.5); Mean Corpuscular Hemoglobin 30.9 pg (28.0-33.3); Mean Corpuscular Volume 98.6 fL (83.0-100.0); Mean Platelet Volume 10.1 fL (9.4-12.4); Monocytes # 0.4 K/mcL (0.0-1.3); Monocytes % 2.7 %; Neutrophils # 11.4 K/mcL (1.6-8.9); Platelet Count 270 K/mcL (140-400); Red Blood Count 2.85 M/mcL (3.82-4.97); Red Cell Distribution Width 16.5 % (11.5-14.5); Segmented Neutrophils % 83.4 %; White Blood Count 13.7 K/mcL (4.3-11.1)
[2021-10-16 14:04] LABS: Potassium 3.8 mEq/L (3.5-5.1)
[2021-10-16] MEDS: Aspirin Enteric Coated 325 MG Tablet PO SCH ×2 (16:30→20:48)
[2021-10-16] MEDS: tiZANidine 4 MG TABLET PO SCH (20:48)
[2021-10-16] MEDS: QUEtiapine Fumarate 100 MG TABLET PO SCH (20:48)
[2021-10-16] MEDS: Diclofenac Sodium (DR) 75 MG TABLET.DR PO SCH (20:48)
[2021-10-16] MEDS: Gabapentin 100 MG CAPSULE PO SCH (20:48)
[2021-10-17] MEDS: Levothyroxine 25 MCG TABLET PO SCH (05:54)
[2021-10-17] MEDS ORDERED: Ringers Solution, Lactated 1,000 ML IVC ONE (06:07)
[2021-10-17] MEDS: Multivit/Ca/Min/Fe/FA 1 TAB TABLET PO SCH (09:50)
[2021-10-17] MEDS: Cyanocobalamin (B-12) 1,000 MCG TABLET PO SCH (09:51)
[2021-10-17] MEDS: Furosemide 20 MG TABLET PO SCH (09:51)
[2021-10-17] MEDS: Metoprolol 100 MG TABLET PO SCH ×2 (09:51→20:18)
[2021-10-17] MEDS: Aspirin Enteric Coated 325 MG Tablet PO SCH ×2 (09:51→20:17)
[2021-10-17] MEDS: Budesonide/Formoterol 80/4.5 1 PUFF INH IH SCH ×2 (10:07→19:47)
[2021-10-17] MEDS: tiZANidine 4 MG TABLET PO SCH (20:17)
[2021-10-17] MEDS: Diclofenac Sodium (DR) 75 MG TABLET.DR PO SCH (20:17)
[2021-10-17] MEDS: QUEtiapine Fumarate 100 MG TABLET PO SCH (20:17)
[2021-10-17] MEDS: Gabapentin 100 MG CAPSULE PO SCH (20:17)
[2021-10-18] MEDS: Levothyroxine 25 MCG TABLET PO SCH (06:06)
[2021-10-18] MEDS: Budesonide/Formoterol 80/4.5 1 PUFF INH IH SCH ×2 (08:10→20:23)
[2021-10-18] MEDS: Aspirin Enteric Coated 325 MG Tablet PO SCH ×2 (09:11→21:03)
[2021-10-18] MEDS: Multivit/Ca/Min/Fe/FA 1 TAB TABLET PO SCH (09:12)
[2021-10-18] MEDS: Cyanocobalamin (B-12) 1,000 MCG TABLET PO SCH (09:12)
[2021-10-18] MEDS: Metoprolol 100 MG TABLET PO SCH ×2 (09:12→21:03)
[2021-10-18] MEDS: Furosemide 20 MG TABLET PO SCH (09:12)
[2021-10-18] MEDS: Diclofenac Sodium (DR) 75 MG TABLET.DR PO SCH (21:03)
[2021-10-18] MEDS: Gabapentin 100 MG CAPSULE PO SCH (21:03)
[2021-10-18] MEDS: tiZANidine 4 MG TABLET PO SCH (21:03)
[2021-10-18] MEDS: QUEtiapine Fumarate 100 MG TABLET PO SCH (21:03)
[2021-10-19] MEDS: Levothyroxine 25 MCG TABLET PO SCH (05:45)
[2021-10-19] MEDS: Budesonide/Formoterol 80/4.5 1 PUFF INH IH SCH ×2 (08:08→22:09)
[2021-10-19] MEDS: Cyanocobalamin (B-12) 1,000 MCG TABLET PO SCH (10:04)
[2021-10-19] MEDS: Furosemide 20 MG TABLET PO SCH (10:04)
[2021-10-19] MEDS: Multivit/Ca/Min/Fe/FA 1 TAB TABLET PO SCH (10:04)
[2021-10-19] MEDS: Aspirin Enteric Coated 325 MG Tablet PO SCH ×2 (10:04→21:05)
[2021-10-19] MEDS: Metoprolol 100 MG TABLET PO SCH ×2 (10:04→21:05)
[2021-10-19 15:00] LABS: Hematocrit 30.4 % (35.3-44.9); Hemoglobin 9.4 g/dL (11.5-15.4)
[2021-10-19] MEDS: Gabapentin 100 MG CAPSULE PO SCH (21:05)
[2021-10-19] MEDS: QUEtiapine Fumarate 100 MG TABLET PO SCH (21:05)
[2021-10-19] MEDS: tiZANidine 4 MG TABLET PO SCH (21:05)
[2021-10-19] MEDS: Diclofenac Sodium (DR) 75 MG TABLET.DR PO SCH (21:05)
[2021-10-19] MEDS: *HR* OxyCODONE Immed Rel 5 MG TABLET PO PRN (21:08)
[2021-10-20] MEDS: Levothyroxine 25 MCG TABLET PO SCH (06:02)
[2021-10-20] MEDS: Budesonide/Formoterol 80/4.5 1 PUFF INH IH SCH ×2 (08:12→20:20)
[2021-10-20] MEDS: Aspirin Enteric Coated 325 MG Tablet PO SCH ×2 (08:59→21:22)
[2021-10-20] MEDS: Metoprolol 100 MG TABLET PO SCH ×2 (08:59→21:11)
[2021-10-20] MEDS: Cyanocobalamin (B-12) 1,000 MCG TABLET PO SCH (08:59)
[2021-10-20] MEDS: Furosemide 20 MG TABLET PO SCH (08:59)
[2021-10-20] MEDS: Multivit/Ca/Min/Fe/FA 1 TAB TABLET PO SCH (08:59)
[2021-10-20] MEDS: QUEtiapine Fumarate 100 MG TABLET PO SCH (21:22)
[2021-10-20] MEDS: Diclofenac Sodium (DR) 75 MG TABLET.DR PO SCH (21:22)
[2021-10-20] MEDS: tiZANidine 4 MG TABLET PO SCH (21:22)
[2021-10-20] MEDS: Gabapentin 100 MG CAPSULE PO SCH (21:22)
[2021-10-20] MEDS: *HR* OxyCODONE Immed Rel 5 MG TABLET PO PRN (21:31)
[2021-10-21] MEDS: Levothyroxine 25 MCG TABLET PO SCH (05:28)
[2021-10-21] MEDS ORDERED: polyethylene glycoL 3350 17 GM POWD.PACK PO PRN (08:14)
[2021-10-21] MEDS: Metoprolol 100 MG TABLET PO SCH ×2 (09:03→21:56)
[2021-10-21] MEDS: Multivit/Ca/Min/Fe/FA 1 TAB TABLET PO SCH (11:12)
[2021-10-21] MEDS: Aspirin Enteric Coated 325 MG Tablet PO SCH ×2 (11:12→21:19)
[2021-10-21] MEDS: Furosemide 20 MG TABLET PO SCH (11:12)
[2021-10-21] MEDS: Cyanocobalamin (B-12) 1,000 MCG TABLET PO SCH (11:13)
[2021-10-21] MEDS: Budesonide/Formoterol 80/4.5 1 PUFF INH IH SCH ×2 (11:23→20:47)
[2021-10-21] MEDS: Gabapentin 100 MG CAPSULE PO SCH (21:19)
[2021-10-21] MEDS: QUEtiapine Fumarate 100 MG TABLET PO SCH (21:19)
[2021-10-21] MEDS: *HR* OxyCODONE Immed Rel 5 MG TABLET PO PRN (21:19)
[2021-10-21] MEDS: tiZANidine 4 MG TABLET PO SCH (21:19)
[2021-10-21] MEDS: Diclofenac Sodium (DR) 75 MG TABLET.DR PO SCH (21:55)
[2021-10-22] MEDS: Levothyroxine 25 MCG TABLET PO SCH (06:16)
[2021-10-22] MEDS: Budesonide/Formoterol 80/4.5 1 PUFF INH IH SCH ×2 (09:53→19:51)
[2021-10-22] MEDS: Multivit/Ca/Min/Fe/FA 1 TAB TABLET PO SCH (12:18)
[2021-10-22] MEDS: Furosemide 20 MG TABLET PO SCH (12:19)
[2021-10-22] MEDS: Metoprolol 100 MG TABLET PO SCH ×2 (12:19→21:38)
[2021-10-22] MEDS: Cyanocobalamin (B-12) 1,000 MCG TABLET PO SCH (12:19)
[2021-10-22] MEDS: Aspirin Enteric Coated 325 MG Tablet PO SCH ×2 (12:53→21:37)
[2021-10-22 17:40] LABS: Basophils % 0.2 %; Eosinophils # 0.2 K/mcL (0.0-0.6); Eosinophils % 2.1 %; Hematocrit 32.8 % (35.3-44.9); Hemoglobin 10.1 g/dL (11.5-15.4); Immature Granulocytes % 0.2 % (0-4); Lymphocytes # 1.8 K/mcL (0.6-4.6); Lymphocytes % 22.4 %; Mean Corpuscular HGB Conc 30.8 g/dL (31.6-35.5); Mean Corpuscular Hemoglobin 30.1 pg (28.0-33.3); Mean Corpuscular Volume 97.9 fL (83.0-100.0); Mean Platelet Volume 9.3 fL (9.4-12.4); Monocytes # 0.5 K/mcL (0.0-1.3); Monocytes % 5.6 %; Neutrophils # 5.7 K/mcL (1.6-8.9); Platelet Count 363 K/mcL (140-400); Red Blood Count 3.35 M/mcL (3.82-4.97); Red Cell Distribution Width 15.7 % (11.5-14.5); Segmented Neutrophils % 69.5 %; White Blood Count 8.2 K/mcL (4.3-11.1)
[2021-10-22 17:59] LABS: Calcium 9.4 mg/dL (8.6-10.3); Potassium 3.8 mEq/L (3.5-5.1)
[2021-10-22] MEDS: Diclofenac Sodium (DR) 75 MG TABLET.DR PO SCH (21:36)
[2021-10-22] MEDS: tiZANidine 4 MG TABLET PO SCH (21:36)
[2021-10-22] MEDS: *HR* OxyCODONE Immed Rel 5 MG TABLET PO PRN (21:37)
[2021-10-22] MEDS: QUEtiapine Fumarate 100 MG TABLET PO SCH (21:37)
[2021-10-22] MEDS: Gabapentin 100 MG CAPSULE PO SCH (21:38)
[2021-10-23] MEDS: Levothyroxine 25 MCG TABLET PO SCH (05:57)
[2021-10-23] MEDS ORDERED: Iron Sucrose Complex 200 MG in 0.9 % Sodium Chloride 100 ML IVPB ONE (07:42)
[2021-10-23] MEDS: Budesonide/Formoterol 80/4.5 1 PUFF INH IH SCH ×2 (07:58→21:12)
[2021-10-23] MEDS: Aspirin Enteric Coated 325 MG Tablet PO SCH ×2 (08:27→21:38)
[2021-10-23] MEDS: Multivit/Ca/Min/Fe/FA 1 TAB TABLET PO SCH (08:27)
[2021-10-23] MEDS: Cyanocobalamin (B-12) 1,000 MCG TABLET PO SCH (08:27)
[2021-10-23] MEDS: Ringers Solution, Lactated 1,000 ML IVC SCH ×2 (08:53→21:42)
[2021-10-23] MEDS: Furosemide 20 MG TABLET PO SCH (08:54)
[2021-10-23] MEDS ORDERED: Levothyroxine Sodium 100 MCG VIAL IVP ONE (09:20)
[2021-10-23] MEDS: *HR* OxyCODONE Immed Rel 5 MG TABLET PO PRN (21:36)
[2021-10-23] MEDS: tiZANidine 4 MG TABLET PO SCH (21:37)
[2021-10-23] MEDS: QUEtiapine Fumarate 100 MG TABLET PO SCH (21:38)
[2021-10-23] MEDS: Famotidine 20 MG TABLET PO SCH (21:38)
[2021-10-23] MEDS: Gabapentin 100 MG CAPSULE PO SCH (21:38)
[2021-10-24 05:30] LABS: Basophils % 0.2 %; Eosinophils # 0.2 K/mcL (0.0-0.6); Eosinophils % 3.2 %; Hematocrit 25.7 % (35.3-44.9); Immature Granulocytes % 0.3 % (0-4); Lymphocytes # 1.9 K/mcL (0.6-4.6); Lymphocytes % 29.4 %; Mean Corpuscular HGB Conc 32.3 g/dL (31.6-35.5); Mean Corpuscular Hemoglobin 31.2 pg (28.0-33.3); Mean Corpuscular Volume 96.6 fL (83.0-100.0); Mean Platelet Volume 9.7 fL (9.4-12.4); Monocytes # 0.4 K/mcL (0.0-1.3); Monocytes % 6.6 %; Platelet Count 282 K/mcL (140-400); Red Blood Count 2.66 M/mcL (3.82-4.97); Red Cell Distribution Width 15.7 % (11.5-14.5); Segmented Neutrophils % 60.3 %; White Blood Count 6.6 K/mcL (4.3-11.1)
[2021-10-24 05:33] LABS: Hemoglobin 8.3 g/dL (11.5-15.4)
[2021-10-24 05:52] LABS: BUN/Creatinine Ratio 17 (6-26); Blood Urea Nitrogen 16 mg/dL (6-20); Calcium 8.9 mg/dL (8.6-10.3); Carbon Dioxide 26 mEq/L (23-29); Chloride 105 mEq/L (98-107); Glucose 86 mg/dL (70-105); Osmolality,Calculated 284 (280-300); Sodium 137 mEq/L (136-145); eGFR For African Americans > 60 (> 60); eGFR For Non-African Americans 60 (> 60)
[2021-10-24] MEDS ORDERED: Levothyroxine 25 MCG TABLET PO SCH (06:30)
[2021-10-24] MEDS: Budesonide/Formoterol 80/4.5 1 PUFF INH IH SCH ×2 (08:34→20:44)
[2021-10-24] MEDS: Aspirin Enteric Coated 325 MG Tablet PO SCH ×2 (09:03→21:56)
[2021-10-24] MEDS: Ascorbic Acid 500 MG TABLET PO SCH (09:03)
[2021-10-24] MEDS: Magnesium Oxide 400 MG TABLET PO SCH (09:03)
[2021-10-24] MEDS: Multivit/Ca/Min/Fe/FA 1 TAB TABLET PO SCH (09:04)
[2021-10-24] MEDS: Cholecalciferol (D-3) 1,000 UNIT (25MCG) TABLET PO SCH (09:04)
[2021-10-24] MEDS: Cyanocobalamin (B-12) 1,000 MCG TABLET PO SCH (09:04)
[2021-10-24] MEDS ORDERED: Iron Sucrose Complex 200 MG in 0.9 % Sodium Chloride 100 ML IVPB ONE (11:00)
[2021-10-24] MEDS: polyethylene glycoL 3350 17 GM POWD.PACK PO SCH (11:14)
[2021-10-24] MEDS: QUEtiapine Fumarate 100 MG TABLET PO SCH (21:54)
[2021-10-24] MEDS: tiZANidine 4 MG TABLET PO SCH (21:55)
[2021-10-24] MEDS: Famotidine 20 MG TABLET PO SCH (21:56)
[2021-10-24] MEDS: Gabapentin 100 MG CAPSULE PO SCH (21:57)
[2021-10-24] MEDS: *HR* OxyCODONE Immed Rel 5 MG TABLET PO PRN (21:57)
[2021-10-25 05:04] LABS: Basophils % 0.3 %; Eosinophils # 0.2 K/mcL (0.0-0.6); Eosinophils % 2.6 %; Hemoglobin 8.6 g/dL (11.5-15.4); Immature Granulocytes % 0.8 % (0-4); Lymphocytes % 30.6 %; Mean Corpuscular HGB Conc 31.9 g/dL (31.6-35.5); Mean Corpuscular Hemoglobin 30.7 pg (28.0-33.3); Mean Corpuscular Volume 96.4 fL (83.0-100.0); Mean Platelet Volume 9.6 fL (9.4-12.4); Monocytes # 0.5 K/mcL (0.0-1.3); Monocytes % 7.3 %; Neutrophils # 3.9 K/mcL (1.6-8.9); Platelet Count 279 K/mcL (140-400); Red Cell Distribution Width 15.6 % (11.5-14.5); Segmented Neutrophils % 58.4 %; White Blood Count 6.6 K/mcL (4.3-11.1)
[2021-10-25 05:22] LABS: BUN/Creatinine Ratio 15 (6-26); Blood Urea Nitrogen 14 mg/dL (6-20); Calcium 9.1 mg/dL (8.6-10.3); Carbon Dioxide 26 mEq/L (23-29); Chloride 104 mEq/L (98-107); Glucose 92 mg/dL (70-105); Magnesium 2.1 mg/dL (1.6-2.6); Osmolality,Calculated 286 (280-300); Potassium 3.9 mEq/L (3.5-5.1); Sodium 138 mEq/L (136-145); eGFR For African Americans > 60 (> 60); eGFR For Non-African Americans 60 (> 60)
[2021-10-25] MEDS: polyethylene glycoL 3350 17 GM POWD.PACK PO SCH (07:42)
[2021-10-25 07:47] VITALS: TEMP 98; O2SAT 95
[2021-10-25] MEDS: Budesonide/Formoterol 80/4.5 1 PUFF INH IH SCH (08:08)
[2021-10-25] MEDS: Ascorbic Acid 500 MG TABLET PO SCH (08:17)
[2021-10-25] MEDS: Cyanocobalamin (B-12) 1,000 MCG TABLET PO SCH (08:17)
[2021-10-25] MEDS: Aspirin Enteric Coated 325 MG Tablet PO SCH (08:17)
[2021-10-25] MEDS: Magnesium Oxide 400 MG TABLET PO SCH (08:17)
[2021-10-25] MEDS: Cholecalciferol (D-3) 1,000 UNIT (25MCG) TABLET PO SCH (08:17)
[2021-10-25] MEDS: Multivit/Ca/Min/Fe/FA 1 TAB TABLET PO SCH (08:17)
[2021-10-25 10:55] VITALS: BP 107/71; PULSE 88
[2021-10-25 11:56] LABS: Influenza A PCR Negative (Negative); Influenza B PCR Negative (Negative); Resp. Syncytial Virus PCR Negative (Negative)
[2021-10-25 12:02] LABS: SARS-CoV-2 by PCR (In House) Negative (Negative)
== END 2021-10-25 13:38 | DRG 493 ==
LOC: 4WAOSI 12:12 → SDCAOSI 12:12 → 4WAOSI 19:25
PROVIDERS: ADMIT Orthopaedic Surgery Sports Medicine; ATTEND Orthopaedic Surgery Sports Medicine